=== PATIENT | female | born 1950 | race Caucasian/White ===

== ENCOUNTER → 2016-09-02 | Outpatient (CLI) | payer MEDICARE, OTHER ==
[2016-09-02 13:52] LABS: ALANINE AMINOTRANSFERASE 22 U/L (0-55); ALBUMIN 4.4 G/DL (3.2-4.5); ANION GAP 8 MMOL/L (5-14); ASPARTATE AMINO TRANSFERASE 17 U/L (5-34); BILIRUBIN,TOTAL 0.5 MG/DL (0.1-1.0); BLOOD UREA NITROGEN 16 MG/DL (7-18); BUN/CREATININE RATIO 21; CALCIUM 9.4 MG/DL (8.5-10.1); CARBON DIOXIDE 26 MMOL/L (21-32); CHLORIDE 106 MMOL/L (98-107); CREATININE SERUM 0.76 MG/DL (0.60-1.30); GFR ESTIMATED > 60; GLUCOSE 94 MG/DL (70-105); POTASSIUM 4.1 MMOL/L (3.6-5.0); SODIUM 140 MMOL/L (135-145); TOTAL PROTEIN 7.3 G/DL (6.4-8.2)
== END ==
LOC: LAB 10:23
PROVIDERS: ATTEND Family Medicine
DX: E03.9 Hypothyroidism, unspecified (principal)
CPT/HCPCS: 36415; 80053; 84443; 86038; 86039

== ENCOUNTER → 2016-09-05 | Outpatient (CLI) | payer MEDICARE, OTHER ==
[~2016-09-05] MED LIST: CATHETER FLUSH 10 ML SYR IV PRN; IOHEXOL 350 MG/ML 100 ML (OMNIPAQUE 350) VIAL IV ONE; NS 100 ML (IVPB) BAG IV ONE
--- OUTSIDE RECORDS SUMMARY | 2016-09-05 08:09 | XMS REPORT | Continuity of Care Document ---
Author Author [facility] Organization [facility] Address Unknown Phone Unavailable Allergies Medications Problems Date Dx Coded Attending Type Code Diagnosis Diagnosed By 06/08/2014 WILMER MONTGOMERY, SHEELA R Ot 727.51 06/08/2014 WILMER MONTGOMERY, SHEELA R Ot 822.0 06/08/2014 WILMER MONTGOMERY, SHEELA R Ot E000.8 06/08/2014 WILMER MONTGOMERY, SHEELA R Ot E888.9 02/27/2015 WILMER MONTGOMERY, SHEELA R Ot V76.12 04/23/2015 Ot V76.12 04/23/2015 Ot 246.9 04/23/2015 Ot V18.11 04/23/2015 Ot 241.0 04/23/2015 Ot 241.0 04/23/2015 Ot 174.9 04/23/2015 Ot V76.11 04/23/2015 WILMER MONTGOMERY, SHEELA R Ot V76.12 04/23/2015 WILMER MONTGOMERY, SHEELA R Ot 729.5 04/23/2015 WILMER MONTGOMERY, SHEELA R Ot 959.7 04/23/2015 WILMER MONTGOMERY, SHEELA R Ot E000.8 04/23/2015 SHEELA GUILLEN MD R Ot E849.8 04/23/2015 SHEELA GUILLEN MD R Ot E888.9 02/01/2016 SHEELA GUILLEN MD R Ot Z12.31 ENCNTR SCREEN MAMMOGRAM FOR MALIGNANT NE 02/02/2016 SHEELA GUILLEN MD R Ot Z12.31 ENCNTR SCREEN MAMMOGRAM FOR MALIGNANT NE 02/02/2016 SHEELA GUILLEN MD R Ot Z85.3 PERSONAL HISTORY OF MALIGNANT NEOPLASM O 03/07/2016 SHEELA GUILLEN MD R Ot Z12.31 ENCNTR SCREEN MAMMOGRAM FOR MALIGNANT NE 03/07/2016 SHEELA GUILLEN MD R Ot Z85.3 PERSONAL HISTORY OF MALIGNANT NEOPLASM O 09/02/2016 SHEELA GUILLEN MD Ot Z12.31 ENCNTR SCREEN MAMMOGRAM FOR MALIGNANT NE 09/02/2016 SHEELA GUILLEN MD Ot Z85.3 PERSONAL HISTORY OF MALIGNANT NEOPLASM O 09/03/2016 SHEELA GUILLEN MD Ot E03.9 HYPOTHYROIDISM, UNSPECIFIED 09/03/2016 SHEELA GUILLEN MD Ot Z12.31 ENCNTR SCREEN MAMMOGRAM FOR MALIGNANT NE 09/03/2016 SHEELA GUILLEN MD Ot Z85.3 PERSONAL HISTORY OF MALIGNANT NEOPLASM O 09/03/2016 SHEELA GUILLEN MD Ot E03.9 HYPOTHYROIDISM, UNSPECIFIED Procedures Results Test Result Range THYROID STIMULATING HORMONE - 09/02/16 11:25 THYROID STIMULATING HORMONE 1.66 u[iU]/mL 0.35-4.94 Comprehensive metabolic panel - 09/02/16 11:25 Serum or plasma sodium measurement (moles/volume) 140 mmol/ L 135-145 Serum or plasma potassium measurement (moles/volume) 4.1 mmol/L 3.6-5.0 Serum or plasma chloride measurement (moles/volume) 106 mmol /L 98-107 Carbon dioxide 26 mmol/L 21-32 Serum or plasma anion gap determination (moles/volume) 8 mmol/L 5-14 Serum or plasma urea nitrogen measurement (mass/volume) 16 mg/dL 7-18 Serum or plasma creatinine measurement (mass/volume) 0.76 mg /dL 0.60-1.30 Serum or plasma urea nitrogen/creatinine mass ratio 21 NRG Serum or plasma creatinine measurement with calculation of estimated glomerular filtration rate > NRG Serum or plasma glucose measurement (mass/volume) 94 mg/dL 70-105 Serum or plasma calcium measurement (mass/volume) 9.4 mg/dL 8.5-10.1 Serum or plasma total bilirubin measurement (mass/volume) 0.5 mg/dL 0.1-1.0 Serum or plasma alkaline phosphatase measurement (enzymatic activity/volume) 83 U/L 40-136 Serum or plasma aspartate aminotransferase measurement (enzymatic activity/ volume) 17 U/L 5-34 Serum or plasma alanine aminotransferase measurement (enzymatic activity/volume ) 22 U/L 0-55 Serum or plasma protein measurement (mass/volume) 7.3 g/dL 6.4-8.2 Serum or plasma albumin measurement (mass/volume) 4.4 g/dL 3.2-4.5 [id number] - 09/02/16 11:25 Screening antinuclear antibody (ULYSSES) assay by enzyme immunoassay Positive <1:80 Anaplasma phagocytophilum IgG ab [titer] in serum <1:80 Serum nuclear antibody pattern interpretation [facility] NRG Encounters ACCT No. Visit Date/Time Discharge Status Pt. Type Provider Facility Loc./Unit Complaint [id number] 01/24/2015 13:35:00 2014 23:59:59 CLS Outpatient SHEELA GUILLEN MD [facility] RAD [id number] 03/24/2014 14:41:00 2013 23:59:59 CLS Outpatient SHEELA GUILLEN MD [facility] RAD [id number] 03/23/2014 14:32:00 2013 23:59:59 CLS Outpatient SHEELA GULILEN MD [facility] RAD [id number] 01/12/2014 15:28:00 2013 23:59:59 CLS Outpatient SHEELA GUILLEN MD R [facility] RAD [id number] 10/20/2013 09:45:00 2013 23:59:59 CLS Outpatient SHEELA GUILLEN MD [facility] RAD [id number] 09/05/2016 08:15:00 PEN Preadmit SHEELA GUILLEN MD [facility] RAD ACQUIRED HYPOTHYROIDISM [id number] 09/02/2016 10:23:00 ACT Outpatient SHEELA GUILLEN MD [facility] LAB ACQUIRED HYPOTHYROIDISM [id number] 01/31/2016 11:08:00 ACT Outpatient SHEELA GUILLEN MD [facility] RAD SCREENING [id number] 12/12/2011 13:35:00 Document Registration [id number] 10/10/2010 14:12:00 Document Registration [id number] 03/30/2010 10:00:00 Document Registration [id number] 12/19/2009 10:29:00 Document Registration [id number] 12/12/2009 09:08:00 Document Registration
--- NOTE | 2016-09-05 10:19 | Diagnostic Imaging Report ---
CLINICAL INDICATION: Patient with left side of neck in front of the ear lobe, which is swollen and has pain for one month. Patient has history of breast cancer. EXAM: Axial CT scan of the neck soft tissue performed with 75 cc of Omnipaque 350 IV contrast. COMPARISON: None. FINDINGS: There is a 4 mm x 5 mm lymph node which is seen adjacent to the anterior inferior aspect of the left ear. There is no adjacent fat stranding or other significant abnormality seen in the region. There is no significant lymphadenopathy. The largest lymph node measures 8 mm x 12 mm in the left level 2a region. There is slight fatty replacement nodularity of the submandibular gland with no measurable mass or stone seen. The bilateral parotid glands show no significant abnormality. The thyroid gland is homogenous and unremarkable. There is no neck soft tissue fluid collection or enhancing mass. The nasopharynx, oropharynx, hypopharynx, and laryngeal structures are unremarkable. Lungs are unremarkable. The neck vessels are structures are unremarkable as visualized. There are cervical spine degenerative spurs and facet arthropathy. Visualized intracranial structures are unremarkable. IMPRESSION: 1: There is a 4 mm x 5 mm benign appearing lymph node seen adjacent to the anterior for aspect of the left ear. There is no other significant abnormality seen in this region. The remainder of this neck CT scan exam is unremarkable for patient's age. Dictated by: Dictated on workstation # [id number]
== END ==
LOC: RAD 08:06
PROVIDERS: ATTEND Family Medicine
DX: E03.9 Hypothyroidism, unspecified (principal)
CPT/HCPCS: 70491

== ENCOUNTER → 2016-09-12 | Outpatient (CLI) | payer MEDICARE, OTHER ==
--- OUTSIDE RECORDS SUMMARY | 2016-09-12 07:45 | XMS REPORT | Continuity of Care Document ---
Author Author [facility] Organization [facility] Address Unknown Phone Unavailable Allergies Active Description Code Type Severity Reaction Onset Reported/Identified Relationship to Patient Clinical Status Yes No Allergy Information Available [id number] Drug Allergy Unknown N/A 09/05/2016 Medications Problems Date Dx Coded Attending Type [...] WILMER MONTGOMERY, SHEELA R Ot E000.8 04/23/2015 WILMER MONTGOMERY, SHEELA R Ot E849.8 04/23/2015 WILMER MONTGOMERY, SHEELA R Ot E888.9 02/01/2016 WILMER MONTGOMERY, SHEELA R Ot Z12.31 ENCNTR SCREEN MAMMOGRAM FOR MALIGNANT NE 02/02/2016 WILMER MONTGOMERY, SHEELA R Ot Z12.31 ENCNTR SCREEN MAMMOGRAM FOR MALIGNANT NE 02/02/2016 WILMER MONTGOMERY, SHEELA R Ot Z85.3 PERSONAL HISTORY OF MALIGNANT NEOPLASM O 03/07/2016 WILMER MONTGOMERY, SHEELA R Ot Z12.31 ENCNTR SCREEN MAMMOGRAM FOR MALIGNANT NE 03/07/2016 SHEELA GUILLEN MD R Ot Z85.3 PERSONAL HISTORY OF MALIGNANT NEOPLASM O 09/02/2016 SHEELA GUILLEN MD R Ot Z12.31 ENCNTR SCREEN MAMMOGRAM FOR MALIGNANT NE 09/02/2016 SHEELA GUILLEN MD R Ot Z85.3 PERSONAL HISTORY OF MALIGNANT NEOPLASM O 09/03/2016 SHEELA GUILLEN MD R Ot E03.9 HYPOTHYROIDISM, UNSPECIFIED 09/03/2016 SHEELA GUILLEN MD R Ot Z12.31 ENCNTR SCREEN MAMMOGRAM FOR MALIGNANT NE 09/03/2016 SHEELA GUILLEN MD R Ot Z85.3 PERSONAL HISTORY OF MALIGNANT NEOPLASM O 09/03/2016 SHEELA GULILEN MD R Ot E03.9 HYPOTHYROIDISM, UNSPECIFIED 09/06/2016 SHEELA GUILLEN MD R Ot E03.9 HYPOTHYROIDISM, UNSPECIFIED Procedures Results Test [...] plasma albumin measurement (mass/volume) 4.4 g/dL 3.2-4.5 [id number] - 09/02/16 11:25 Screening antinuclear antibody (ULYSSES) assay by enzyme immunoassay Positive <1:80 Anaplasma phagocytophilum IgG ab [titer] in serum <1:80 Serum nuclear antibody pattern interpretation [facility] NRG Encounters ACCT No. Visit Date/Time Discharge Status Pt. Type Provider Facility Loc./Unit Complaint [id number] 01/24/2015 13:35:00 2014 23:59:59 CLS Outpatient SHEELA GUILLEN MD [facility] RAD [id number] 03/24/2014 14:41:00 2013 23:59:59 CLS Outpatient SHEELA GUILLEN MD [facility] RAD [id number] 03/23/2014 14:32:00 2013 23:59:59 CLS Outpatient SHEELA GUILLEN MD [facility] RAD [id number] 01/12/2014 15:28:00 2013 23:59:59 CLS Outpatient SHEELA GUILLEN MD [facility] RAD [id number] 10/20/2013 09:45:00 2013 23:59:59 CLS Outpatient SHEELA GUILLEN MD [facility] RAD [id number] 09/05/2016 08:06:00 ACT Outpatient SHEELA GUILLEN MD [facility] RAD ACQUIRED HYPOTHYROIDISM [id number] 09/02/2016 10:23:00 ACT Outpatient SHEELA GUILLEN MD [facility] LAB ACQUIRED HYPOTHYROIDISM [id number] 01/31/2016 11:08:00 ACT Outpatient SHEELA GUILLEN MD [facility] RAD SCREENING [id number] 12/12/2011 13:35:00 Document Registration [id number] 10/10/2010 14:12:00 Document Registration [id number] 03/30/2010 10:00:00 Document Registration [id number] 12/19/2009 10:29:00 Document Registration [id number] 12/12/2009 09:08:00 Document Registration
--- NOTE | 2016-09-12 12:48 | Diagnostic Imaging Report ---
PROCEDURE: MR imaging cervical spine without contrast. TECHNIQUE: Multiplanar, multisequence MR imaging of the cervical spine was performed without contrast. INDICATION: Neck pain. Patient has history of breast cancer. FINDINGS: There is straightening of the cervical spine curvature. The alignment at the posterior spinal line is satisfactory. The vertebral body heights are preserved. There is disc desiccation at all levels and moderate disc height loss at C5-C6. There is mild disc height loss at the C4-C5 and C6-C7 levels. There are mild reactive marrow changes around the endplates of the mid cervical spine levels compatible with Modic type I reactive edema changes. There is thickening of the posterior longitudinal ligament from C4-C5 to C6-C7 disc levels. The spinal cord has a normal signal. The foramen magnum and upper cervical canal are widely patent. C2-C3: There is no disc herniation, and no spinal canal or foraminal stenosis. C3-C4: There is a minimal disc spur complex with no spinal canal stenosis. No foraminal narrowing. C4-C5: There is a prominent disc spur complex associated with pyqp-de-uaavfhgv central canal stenosis reducing the AP dimension of the spinal canal to 8 mm. It is associated with mild compression of the spinal cord deforming its anterior contour. There is uncovertebral and facet joint hypertrophy resulting in hlhb-be-frqwhdft foraminal stenosis on the right and no significant foraminal stenosis on the left. C5-C6: There is a disc spur complex and posterior ligamentous hypertrophy resulting in moderate spinal canal stenosis reducing the AP dimension of the spinal canal to 6.7 mm. There is minimal impression upon the anterior margin of the spinal cord. No cord signal abnormality. The foramina demonstrate bilateral severe stenosis. C6-C7: There is a spur disc complex associated with mild spinal canal stenosis reducing the AP dimension of the canal to 8.5 mm with no significant cord compression. The foramina demonstrate ljqc-ye-rlbfkpiz narrowing on the left side only. C7-T1: No spinal canal or foraminal stenosis. No disc herniation. IMPRESSION: Degenerative disc, facet and uncovertebral joint changes and thickening of the posterior longitudinal ligament associated with spinal canal and foraminal stenosis involving the C4-C5, C5-C6 and C6-C7 levels as described. Dictated by: Dictated on workstation # [id number]
== END ==
LOC: RAD 07:42
PROVIDERS: ATTEND Family Medicine
DX: M54.2 Cervicalgia (principal); G56.92 Unspecified mononeuropathy of left upper limb
CPT/HCPCS: 72141

== ENCOUNTER → 2016-12-20 | Outpatient (CLI) | payer MEDICARE, OTHER ==
--- NOTE | 2016-12-20 13:28 | Diagnostic Imaging Report ---
PROCEDURE: MRI left upper extremity without contrast. TECHNIQUE: Multiplanar, multisequence non contrast-enhanced MRI of the left upper extremity was accomplished. INDICATION: Left shoulder pain, limited range of motion. FINDINGS: There are no previous left shoulder studies available for comparison. The MRI cervical spine exam of 09/12/2016 did note degenerative disc, ligamentous, and bony disease at C4-C5, C5-C6, and C6-C7. The T2 fat-saturated coronal series of this study shows that there is near-complete obliteration of the glenohumeral space. The labrum has also been severely torn and has degenerated. There are also numerous sublabral cysts within the glenoid consistent with a long-standing tear and degeneration of the labrum. Furthermore, there is a suggestion of a sizable bony excrescence along the inferior margin of the humeral head. This measures 1.0 x 2.5 x 3.8 cm in maximum transverse, longitudinal, and AP dimensions. I suspect that this is a sequela of prior trauma and/or degenerative disease; however, I would recommend that a three-view plain film examination of the left shoulder be performed for further study of this finding. There is no abnormal signal arising from the osseous structures to suggest bone edema or fracture. There is hypertrophy of the acromioclavicular joint and there is a trace amount of fluid within the joint. This fluid may be secondary to mild synovitis. There is also a small amount of fluid in the subacromial bursa and this suggests that there is an element of mild tendinitis present as well; however, the hypertrophy of the acromioclavicular joint does not result in any significant narrowing of the outlet for the supraspinatus muscle. On the T2 fat-saturated series, there is a minute area of increased signal along the anterior most insertion of the attachment of the rotator cuff. This may represent a very small rim-rent tear. For the most part, the rotator cuff appears to be intact. The supraspinatus muscle is not retracted or bunched. The biceps tendon and the subscapularis tendon are intact. There is no sign of a joint effusion. IMPRESSION: 1. There is no evidence for an acute bony abnormality. 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 The labrum has been torn and has degenerated. There also appears to be a sizable bony excrescence along the inferior margin of the humeral head. Recommendations as above. 2. There is a minute tear of the anterior insertion of the rotator cuff. The supraspinatus muscle however is not retracted or bunched. 3. There is mild hypertrophy of the acromioclavicular joint, but there is no narrowing of the outlet for the supraspinatus muscle. The trace amount of fluid in the acromioclavicular joint may be secondary to mild synovitis. Dictated by: Dictated on workstation # [id number]
== END ==
LOC: RAD 11:32
PROVIDERS: ATTEND Family Medicine
DX: M19.012 Primary osteoarthritis, left shoulder (principal); G89.29 Other chronic pain
CPT/HCPCS: 73221

== ENCOUNTER 2017-02-21 10:00 | Outpatient (RCR) | payer MEDICARE, OTHER | END 2017-03-04 | disposition home or self-care (01) | PROVIDERS: ATTEND Physician Assistant | DX: M48.02 Spinal stenosis, cervical region (principal) ==

== ENCOUNTER → 2017-03-18 | Outpatient (CLI) | payer MEDICARE, OTHER ==
--- NOTE | 2017-03-18 17:13 | Diagnostic Imaging Report ---
FOOT, RIGHT, 3 VIEW COMPARISON: None available. INDICATION: Anterior foot pain and swelling. No trauma. TECHNIQUE: Non-weight bearing AP, oblique, and lateral views of the foot. FINDINGS: Normal osseous mineralization. No osseous erosions or periosteal reaction. Mild degenerative joint space narrowing of the great toe MTP joint. Other joint spaces are maintained. A type 3 os navicularis is present. Large plantar calcaneal spur. No discrete soft tissue abnormality by radiography. IMPRESSION: 1. No radiographic abnormality to explain patient's foot pain and swelling. Dictated by: Dictated on workstation # [id number]
== END ==
LOC: RAD 16:36
PROVIDERS: ATTEND Family Medicine
DX: M79.671 Pain in right foot (principal)
CPT/HCPCS: 73630

== ENCOUNTER 2017-05-04 23:51 | Day surgery (SDC) | payer MEDICARE, OTHER ==
[~2017-05-04] VITALS: Ht 167.6 cm; Wt 93.9 kg
[2017-05-05] VITALS (19 sets, daily range): BP systolic 99–147; BP diastolic 52–90
[2017-05-05] MEDS ORDERED: GABA-488 (00:13)
[2017-05-05] MEDS ORDERED: LEVO50TA6 PO (00:13)
[2017-05-05] MEDS ORDERED: PARO10TA3 PO (00:13)
[2017-05-05] MEDS ORDERED: ASPIRIN 81 MG CHEW (CHILDREN'S ASA) PO ONE (00:15)
[2017-05-05 00:16] LABS: BASOPHILS % (AUTO) 0 % (0-10); EOSINOPHILS # (AUTO) 0.2 10^3/uL (0.0-0.3); EOSINOPHILS % (AUTO) 2 % (0-10); LYMPHOCYTES # (AUTO) 5.5 X 10^3 (1.0-4.0); LYMPHOCYTES % (AUTO) 54 % (12-44); MEAN CORPUSCULAR HEMOGLOBIN 29 PG (25-34); MEAN CORPUSCULAR HGB CONC 34 G/DL (32-36); MEAN CORPUSCULAR VOLUME 85 FL (80-99); MEAN PLATELET VOLUME 10.9 FL (7.4-10.4); MONOCYTES # (AUTO) 0.8 X 10^3 (0.0-1.0); MONOCYTES % (AUTO) 8 % (0-12); NEUTROPHILS # (AUTO) 3.7 X 10^3 (1.8-7.8); NEUTROPHILS % (AUTO) 36 % (42-75); PLATELET COUNT 295 10^3/uL (130-400); RED BLOOD COUNT 5.12 10^6/uL (4.35-5.85); RED CELL DISTRIBUTION WIDTH 13.8 % (10.0-14.5); WHITE BLOOD COUNT 10.1 10^3/uL (4.3-11.0)
[2017-05-05 00:25] LABS: INR 0.9 (0.8-1.4)
--- NOTE | 2017-05-05 00:33 | ED Cardiac General ---
History of Present Illness General Chief Complaint: Cardiac/General Problems Stated Complaint: DIZZY Nursing Triage Note: PALPATATIONS, DIZZINESS, LOW HEARTRATE Source: patient Exam Limitations: no limitations History of Present Illness Time seen by provider: 00:02 Initial Comments Here with report of feeling a fluttering in her chest, left ear pain, diaphoresis, nausea and occasional diarrhea that has been intermittent over the last 24 hours. Notes that she's had some irregular heartbeat for a long time but it has never been like this. She had been checking her blood pressure and pulse today and noted that there was a wide range of both including pulse in the range of 40s to 110s. She was unsure of why she was having diaphoresis. Overall this all concerned her so she presented for further evaluation. Timing/Duration: changing over time, 1 day Severity: moderate Location: central (fluttering), other (left ear neck pain) Activities at Onset: none Prior CP/Workup: no prior chest pain, no prior cardiac workup NTG SL CHIEF CREATIVE OFFICER: No ASA po CHIEF CREATIVE OFFICER: No Associated Systoms: Diaphoresis, No Fever/Chills, Nausea/Vomiting, No Shortness of Air, No Weakness Allergies and Home Medications Allergies Coded Allergies: Penicillins (Verified Allergy, Unknown, 05/05/17) Home Medications Gabapentin 300 Mg Capsule, (Reported) Levothyroxine Sodium 50 Mcg Tablet, (Reported) Paroxetine HCl 10 Mg Tablet, (Reported) Review of Systems Constitutional: see HPI, No chills, diaphoresis, No fever EENTM: No Symptoms Reported Respiratory: No Symptoms Reported Cardiovascular: See HPI, Chest Pain, Denies Edema, Irregular Heart Rate, Lightheadedness, Palpitations Gastrointestinal: Diarrhea, Nausea, Denies Vomiting Genitourinary: No Symptoms Reported Musculoskeletal: see HPI, muscle pain, neck pain Skin: no symptoms reported Psychiatric/Neurological: No Symptoms Reported All Other Systems Reviewed Negative Unless Noted: Yes Past Qbitmoi-Nxljyp-Xdzzap Hx Patient Social History Alcohol Use: Denies Use Recreational Drug Use: No Smoking Status: Never a Smoker 2nd Hand Smoke Exposure: No Recent Foreign Travel: No Contact w/Someone Who Travel: No Recent Infectious Disease Expo: No Recent Hopitalizations: No Immunizations Up To Date Tetanus Booster (TDap): Unknown Seasonal Allergies Seasonal Allergies: No Surgeries History of Surgeries: Yes Surgeries: Breast, Gallbladder, Hysterectomy Respiratory History of Respiratory Disorde: No Cardiovascular History of Cardiac Disorders: No Neurological History of Neurological Disord: No Reproductive System : No CARPET INSTALLATION SPECIALIST History: Hysterectomy, Menopausal Genitourinary History of Genitourinary Disor: No Gastrointestinal History of Gastrointestinal Di: No Musculoskeletal History of Musculoskeletal Dis: No Endocrine History of Endocrine Disorders: Yes Endocrine Disorders: Hypothyroidsim HEENT History of HEENT Disorders: No Cancer History of Cancer: Yes Cancer: Breast Type of Tx Receive: Surgical Intervention Psychosocial History of Psychiatric Problem: Yes Behavioral Health Disorders: Anxiety Integumentary History of Skin or Integumenta: No Blood Transfusions History of Blood Disorders: No Adverse Reaction to a Blood Tr: No Reviewed Nursing Assessment Reviewed/Agree w Nursing PMH: Yes Family Medical History Significant Family History: Heart Disease, CAD Under 55 Years Old, CAD Over 55 Years Old, Hypertension Physical Exam Vital Signs Vital Sign - Last 12Hours Capillary Refill : Less Than 3 Seconds General Appearance: No Apparent Distress, WD/WN HEENT: PERRL/EOMI, Pharynx Normal Neck: Non Tender, Supple Respiratory: Lungs Clear, Normal Breath Sounds Cardiovascular: No Murmur, Irregularly Irregular, Tachycardia Gastrointestinal: Non Tender, Soft Extremity: Normal Inspection, Normal Range of Motion, Non Tender Neurologic/Psychiatric: Alert, Oriented x3 Skin: Normal Color, Warm/Dry Progress/Results/Core Measures Results/Orders Lab Results Laboratory Tests Test 05/05/17 00:08 Range/Units White Blood Count 10.1 4.3-11.0 10^3/uL Red Blood Count 5.12 4.35-5.85 10^6/uL Hemoglobin 14.9 11.5-16.0 G/DL Hematocrit 44 35-52 % Mean Corpuscular Volume 85 80-99 FL Mean Corpuscular Hemoglobin 29 25-34 PG Mean Corpuscular Hemoglobin Concent 34 32-36 G/DL Red Cell Distribution Width 13.8 10.0-14.5 % Platelet Count 295 130-400 10^3/uL Mean Platelet Volume 10.9 H 7.4-10.4 FL Neutrophils (%) (Auto) 36 L 42-75 % Lymphocytes (%) (Auto) 54 H 12-44 % Monocytes (%) (Auto) 8 0-12 % Eosinophils (%) (Auto) 2 0-10 % Basophils (%) (Auto) 0 0-10 % Neutrophils # (Auto) 3.7 1.8-7.8 X 10^3 Lymphocytes # (Auto) 5.5 H 1.0-4.0 X 10^3 Monocytes # (Auto) 0.8 0.0-1.0 X 10^3 Eosinophils # (Auto) 0.2 0.0-0.3 10^3/uL Basophils # (Auto) 0.0 0.0-0.1 10^3/uL Prothrombin Time 12.0 L 12.2-14.7 SEC INR Comment 0.9 0.8-1.4 Activated Partial Thromboplast Time 26 24-35 SEC D-Dimer 0.31 0.00-0.49 UG/ML Sodium Level 143 135-145 MMOL/L Potassium Level 3.7 3.6-5.0 MMOL/L Chloride Level 107 98-107 MMOL/L Carbon Dioxide Level 25 21-32 MMOL/L Anion Gap 11 5-14 MMOL/L Blood Urea Nitrogen 19 H 7-18 MG/DL Creatinine 1.02 0.60-1.30 MG/DL Estimat Glomerular Filtration Rate 54 BUN/Creatinine Ratio 19 Glucose Level 118 H 70-105 MG/DL Calcium Level 9.9 8.5-10.1 MG/DL Magnesium Level 2.3 1.8-2.4 MG/DL Total Bilirubin 0.3 0.1-1.0 MG/DL Aspartate Amino Transf (AST/SGOT) 13 5-34 U/L Alanine Aminotransferase (ALT/SGPT) 17 0-55 U/L Alkaline Phosphatase 82 40-136 U/L Myoglobin 33.5 10.0-92.0 NG/ML Troponin I < 0.30 <0.30 NG/ML Total Protein 7.9 6.4-8.2 GM/DL Albumin 4.4 3.2-4.5 GM/DL Lipase 21 8-78 U/L My Orders Orders - LATRICE DUGAN MD Cbc With Automated Diff (05/05/17 00:07) Magnesium (05/05/17 00:07) Chest 1 View, Ap/Pa Only (05/05/17 00:07) Ekg Tracing (05/05/17 00:07) Cardiac Profile 1 (05/05/17 00:07) Comprehensive Metabolic Panel (05/05/17 00:07) Myoglobin Serum (05/05/17 00:07) Protime With Inr (05/05/17 00:07) Partial Thromboplastin Time (05/05/17 00:07) O2 (05/05/17 00:07) Monitor-Rhythm Ecg Trace Only (05/05/17 00:07) Lipid Panel (05/06/17 06:00) Aspirin Chewable Tablet (Baby Aspirin Ch (05/05/17 00:15) Saline Lock/Iv-Start (05/05/17 00:07) Lipase (05/05/17 00:07) Fibrin Degradation Products (05/05/17 00:07) Thyroid Stimulating Hormone (05/05/17 01:09) Medications Given in ED Current Medications Medications Dose Ordered Sig/Valerio Route Start Time Stop Time Status Last Admin Dose Admin Aspirin 324 mg ONCE ONCE PO 05/05/17 00:15 05/05/17 00:16 DC 05/05/17 00:28 324 MG Vital Signs/I&O Vital Sign - Last 12Hours 05/05/17 05/05/17 00:13 00:13 Temp 98.7 Pulse 116 Resp 18 B/P (MAP) 191/91 Pulse Ox 94 96 O2 Delivery Room Air Nasal Cannula Blood Pressure Mean: 124 Progress Note : Progress Note Seen and evaluated. IV, labs, EKG and chest x-ray ordered. ASA 324 mg by mouth ordered. Monitor patient. Patient has a variety of rhythms on the monitor including normal sinus, tachycardia, bigeminy, multifocal PVCs. Monitor patient. 0105: Patient still has a variety of rhythms on the monitor including ventricular bigeminy, sinus rhythm and then do note multifocal PVCs. States she feels a little better. Patient has significant cardiac history and never has had cardiac workup. There is early cardiac in her close family including her father. Due to presentation including diaphoresis with the variety of heart rates, admission is indicated. This was discussed with the patient and family who agree. I did discuss the case with Dr. Manzo at 0105 and she accepts patient for admission, observation status. Requesting cardiology evaluation and consult in the morning. This was ordered. Admit, observation status. Patient reported that she has had problems with her thyroid recently. Thyroid study added for review by admitting physician. ECG Initial ECG Impression Date: May 05, 2017 Initial ECG Impression Time: 00:08 Initial ECG Rate: 110 Initial ECG Rhythm: S.Tach Initial ECG Comparisson: Changed Comment Ventricular bigeminy with sinus tachycardia. Multifocal PVCs noted. No evidence of ST elevation TN. changed from previous of 22 June 2007. Interpreted by me. Diagnostic Imaging Diagonstic Imaging: Xray Plain Films/CT/US/NM/MRI: chest Comments Mildly enlarged cardiac silhouette. Otherwise no acute findings. Departure Communication (Admissions) Time/Spoke to Admitting Phy: 01:05 Impression Impression: Primary Impression: Chest pain Qualified Codes: R07.9 - Chest pain, unspecified Additional Impressions: Palpitations Multifocal PVCs Disposition: ADMITTED INPATIENT Condition: Stable Admissions Decision to Admit Reason: Admit from ER (General) Decision to Admit/Date: May 05, 2017 Time/Decision to Admit Time: 01:05 Departure-Patient Inst. Referrals: SHEELA GUILLEN MD (PCP/Family) Primary Care Physician LATRICE DUGAN MD May 05, 2017 00:33
[2017-05-05 00:37] LABS: ALANINE AMINOTRANSFERASE 17 U/L (0-55); ALBUMIN 4.4 GM/DL (3.2-4.5); ANION GAP 11 MMOL/L (5-14); ASPARTATE AMINO TRANSFERASE 13 U/L (5-34); BILIRUBIN,TOTAL 0.3 MG/DL (0.1-1.0); BLOOD UREA NITROGEN 19 MG/DL (7-18); BUN/CREATININE RATIO 19; CALCIUM 9.9 MG/DL (8.5-10.1); CARBON DIOXIDE 25 MMOL/L (21-32); CHLORIDE 107 MMOL/L (98-107); CREATININE SERUM 1.02 MG/DL (0.60-1.30); GFR ESTIMATED 54; GLUCOSE 118 MG/DL (70-105); LIPASE 21 U/L (8-78); MAGNESIUM 2.3 MG/DL (1.8-2.4); POTASSIUM 3.7 MMOL/L (3.6-5.0); SODIUM 143 MMOL/L (135-145); TOTAL PROTEIN 7.9 GM/DL (6.4-8.2)
[2017-05-05 00:43] LABS: MYOGLOBIN SERUM 33.5 NG/ML (10.0-92.0)
[2017-05-05] MEDS ORDERED: NITROGLYCERIN 0.4 MG SL TABS BTL 25'S SL PRN (03:15)
[2017-05-05] MEDS ORDERED: morphine INJ 4 MG/ML 1 ML (VIAL/SYRINGE) IV PRN (03:15)
[2017-05-05] MEDS ORDERED: ONDANSETRON 4 MG/2 ML (SDV) Z0FRAN IV PRN (03:15)
[2017-05-05] MEDS: NS IV 1000 ML 1,000 ML IV SCH ×2 (03:22→11:10)
[2017-05-05 06:42] LABS: CHOLESTEROL 203 MG/DL (< 200); CREATINE KINASE 31 U/L (29-168); DIRECT LDL 143 MG/DL (1-129); TRIGLYCERIDES 165 MG/DL (<150); VLDL CHOLESTEROL 33 MG/DL (5-40)
[2017-05-05 06:52] LABS: MYOGLOBIN SERUM 29.5 NG/ML (10.0-92.0); TROPONIN I < 0.30 NG/ML (<0.30)
--- NOTE | 2017-05-05 07:26 | Diagnostic Imaging Report ---
INDICATION: Heart palpitations and dizziness. Comparison made with prior examination from 06/22/07. FINDINGS: The heart size is normal. There is mild venous congestion. There is no pleural effusion or pneumothorax. The mediastinum is unremarkable. IMPRESSION: Mild central pulmonary venous congestion. Dictated by: Dictated on workstation # [id number]
[2017-05-05] MEDS: ASPIRIN E.C. 325 MG (ECOTRIN) TABLET PO SCH ×3 (08:30→11:25)
--- NOTE | 2017-05-05 08:41 | Consultation-Cardiology ---
HPI-Cardiology Cardiology Consultation Date of Consultation 05/05/17 Date of Admission Time Seen by Provider: 08:34 Indication: Chest pain, palpitations HPI Patient is a 67 y/o female with unremarkable PMH. Has history of hypothyroidism. Presented to the ER last night after began having episode of palpitations while doing light housework. Associated chest pain/pressure, dyspnea and diaphoresis, near syncope. EKG in the ER revealed sinus tachycardia with bigeminy. Reports she has been having episodes of palpitations occurring approx once per week for the past year. Denies any active chest pain at this time. 67 years old lady with history of hypothyroidism and anxiety, started having recurrent episodes of palpitation with mild pressure on the left side of her chest lasted the whole day yesterday, came into the emergency room, reporting some improvement after arriving to the floor, currently feeling better, no further episodes were noted, noted to have ventricular bigeminy. Reported mild lightheadedness. Home Medications & Allergies Allergies: Coded Allergies: Penicillins (Verified Allergy, Unknown, 05/05/17) latex (Verified Allergy, Unknown, HIVES, 05/05/17) Home Medication List Reviewed: Yes DVU-Uslobw-Iyjkzn Hx Patient Social History Marital Status: Alcohol Use: Denies Use Recreational Drug Use: No Smoking Status: Never a Smoker 2nd Hand Smoke Exposure: No Recent Foreign Travel: No Recent Infectious Disease Expo: No Recent Hopitalizations: No Physical Abuse Screen: No Sexual Abuse: No Immunizations Up To Date Tetanus Booster (TDap): Unknown Past Medical History hypothyroidism Family Medical History Significant Family History: Heart Disease, CAD Under 55 Years Old, CAD Over 55 Years Old, Hypertension Family History: Asthma 19 FATHER Cardiovascular disease 19 FATHER 19 MOTHER G8 BROTHER (aortic dysfunction) Congenital heart disease 19 MOTHER Hypertension 19 FATHER 19 MOTHER Kidney disease G8 SISTER (kidney cancer ) Myocardial infarction 19 FATHER 19 MOTHER Thyroid disease 19 MOTHER (thyroid cancer) Constitutional: diaphoresis, dizziness, No fever, No malaise EENTM: No blurred vision, No double vision, No vision loss Respiratory: No cough, No dyspnea on exertion Cardiovascular: chest pain, No edema, No Hx of Intervention, palpitations, No syncope, No vascular heart diseas Gastrointestinal: No abdominal pain, No constipation Genitourinary: No dysuria, No frequency Musculoskeletal: No back pain Skin: No lesions, No rash Psychiatric/Neurological: Denies Anxiety, Denies Depressed Reviewed Test Results Reviewed Test Results Lab Laboratory Tests 05/05/17 00:08: White Blood Count 10.1, Red Blood Count 5.12, Hemoglobin 14.9, Hematocrit 44, Mean Corpuscular Volume 85, Mean Corpuscular Hemoglobin 29, Mean Corpuscular Hemoglobin Concent 34, Red Cell Distribution Width 13.8, Platelet Count 295, Mean Platelet Volume 10.9H, Neutrophils (%) (Auto) 36L, Lymphocytes (%) (Auto) 54H, Monocytes (%) (Auto) 8, Eosinophils (%) (Auto) 2, Basophils (%) (Auto) 0, Neutrophils # (Auto) 3.7, Lymphocytes # (Auto) 5.5H, Monocytes # (Auto) 0.8, Eosinophils # (Auto) 0.2, Basophils # (Auto) 0.0, Prothrombin Time 12.0L, INR Comment 0.9, Activated Partial Thromboplast Time 26, D-Dimer 0.31, Sodium Level 143, Potassium Level 3.7, Chloride Level 107, Carbon Dioxide Level 25, Anion Gap 11, Blood Urea Nitrogen 19H, Creatinine 1.02, Estimat Glomerular Filtration Rate 54, BUN/Creatinine Ratio 19, Glucose Level 118H, Calcium Level 9.9, Magnesium Level 2.3, Total Bilirubin 0.3, Aspartate Amino Transf (AST/SGOT) 13, Alanine Aminotransferase (ALT/SGPT) 17, Alkaline Phosphatase 82, Myoglobin 33.5 , Troponin I < 0.30, Total Protein 7.9, Albumin 4.4, Lipase 21, Thyroid Stimulating Hormone (TSH) 3.71 05/05/17 06:11: Myoglobin 29.5, Troponin I < 0.30, Total Creatine Kinase 31, Triglycerides Level 165H, Cholesterol Level 203H, LDL Cholesterol Direct 143H, VLDL Cholesterol 33, HDL Cholesterol 35L ECG Impression ECG Initial ECG Rhythm: S.Tach, PVC Physical Exam Vital Signs Vital Sign - Last 12Hours Capillary Refill : Less Than 3 Seconds General Appearance: No Apparent Distress, WD/WN HEENT: PERRL/EOMI, TMs Normal, Normal ENT Inspection Neck: Non Tender, Supple Respiratory: Chest Non Tender, Lungs Clear Cardiovascular: Regular Rate, Rhythm, No Edema, No JVD, No Murmur Gastrointestinal: No Pulsatile Mass, Non Tender, Soft Rectal: Deferred Back: No CVA Tenderness Extremity: Non Tender, No Calf Tenderness, No Pedal Edema Neurologic/Psychiatric: Alert, Oriented x3, family preservation caseworker II-XII Norm as Tested Skin: Normal Color, Warm/Dry Lymphatic: No Adenopathy A/P-Cardiology Admission Diagnosis (1) Chest pain Qualifiers: Qualified Codes: R07.89 - Other chest pain Status: Acute (2) Palpitations Status: Acute Assessment & Plan: likely secondary to PVC's. Will continue to monitor telemetry. (3) Multifocal PVCs Status: Acute Assessment & Plan: continue to monitor. Will start patient on low dose beta celestino and monitor her tolerance and response. Discussed limiting caffeine. (4) Hyperlipidemia Qualifiers: Qualified Codes: E78.2 - Mixed hyperlipidemia Status: Chronic Assessment & Plan: continue to monitor. Consider starting on statin prior to discharge. (5) Family history of coronary arteriosclerosis (6) Hypothyroidism Qualifiers: Qualified Codes: E03.9 - Hypothyroidism, unspecified Status: Chronic Permanent Comment: management per primary care. TSH WNL Last Edited By: Diamante Shirley on May 05, 2017 08:55 Assessment/Plan Chest pain, nonspecific etiology- EKG revealed SR with PVC's. No acute ST changes. Cardiac enzymes negative. Has multiple risk factors for underlying CAD. Further evaluation with stress test, 2D Echo. Palpitations/PVC's- continue on telemetry and continue to monitor. Patient drink approx 4-5 cups caffeine daily. Discussed limiting caffeine. Will start low dose beta celestino and monitor her tolerance and response. Hyperlipidemia- elevated LDL. Consider starting statin prior to discharge. Hypothyroidism- managed by PCP, TSH WNL. Family hx of CAD Thank you for allowing us to participate in the management of Mrs. Naranjo. This is Diamante Shirley PA-C as a scribe for Dr. Rubalcava. This is Dr. Rubalcava, I have seen and evaluated the patient with Diamante, perform physical examination, she is feeling better at this time, she had chest pain with palpitation with ventricular bigeminy, discussed limiting caffeine intake, I will evaluate echocardiogram and stress test. I interviewed the patient and perform physical examination, did few modification to the note and used Italic Font Clinical Quality Measures AMI/AHF: ASA po Prior to arrival: No DVT/VTE Risk/Contraindication: Risk Factor Score Per Nursin RFS Level Per Nursing on Admit: 3=High DIAMANTE SAUNDERS May 05, 2017 08:41 BERNABE RUBALCAVA MD May 05, 2017 09:55
[2017-05-05] MEDS ORDERED: NS IV 1000 ML 1,000 ML ONE (10:37)
[2017-05-05] MEDS ORDERED: MIDAZOLAM 5 MG/5 ML (VERSED) VIAL ONE (10:37)
[2017-05-05] MEDS ORDERED: fentaNYL INJECTION 100 MCG/2 ML AMP ONE (10:37)
[2017-05-05] MEDS ORDERED: HEParin (CATH LAB) 2,000 ML IV ONE (10:38)
--- NOTE | 2017-05-05 10:53 | History & Physical-Hospitalist ---
HPI History of Present Illness: HPI/Chief Complaint Pt is a 67yoCF with a PMH of breast cancer s/p masectomy and hypothyroidism who presented due to a constellation of symptoms yesterday. She reports for over a year about once per week she has had lightheadedness and palpations. Yesterday she was doing housework and become very lightheaded to the point of nearly passing out and felt her heart was racing and skipping beats. She also had chest pain. She also became very diaphoretic. She elected to come to the ER for evaluation. She denies any history of HTN, heart disease, tobacco use, or DM. She endorses a history of significant family history for cardiac disease (two grandparents dying in the 30s-40s due to heart disease). She has no known diagnosis of sleep apnea but does report snoring. Source: patient Date Seen 05/05/17 Time Seen by Provider: 09:00 Attending Physician Mook Manzo MD PCP Shad Medina MD Referring Physician Date of Admission May 05, 2017 at 1:10 am Home Medications & Allergies Home Medications Reviewed patient Home Medication Reconciliation Form Allergies Allergies Coded Allergies Penicillins (Verified Allergy, Unknown, 05/05/17) latex (Verified Allergy, Unknown, HIVES, 05/05/17) Past Kfbxijj-Rdpcxa-Ahbhaf Hx Patient Social History Marrital Status: Alcohol Use: Denies Use Recreational Drug Use: No Smoking Status: Never a Smoker 2nd Hand Smoke Exposure: No Physical Abuse Screen: No Sexual Abuse: No Recent Foreign Travel: No Contact w/other who traveled: No Recent Hopitalizations: No Recent Infectious Disease Expo: No Immunizations Up To Date Tetanus Booster (TDap): Unknown Pediatric: Yes Seasonal Allergies Seasonal Allergies: Yes (hayfever ) Surgeries Yes Breast, Gallbladder, Hysterectomy Respiratory No Currently Using CPAP: No Currently Using BIPAP: No Cardiovascular Yes Palpitations Neurological No Reproductive System : No Female Reproductive Disorders: Endometriosis TELEPHONE ADVICE NURSE History: Hysterectomy, Menopausal Genitourinary Yes Kidney Stones, UTI-Chronic Gastrointestinal Yes Polyps, Gall Bladder Disease Musculoskeletal Yes Arthritis, Fibromyalgia, Rheumatoid Arthritis, Fractures Endocrine History of Endocrine Disorders: Yes (pt reports possibel lupus is currently checking her for it) Endocrine Disorders: Hypothyroidsim HEENT History of HEENT Disorders: Yes HEENT Disorders: Cataract Loss of Vision: Denies Hearing Impairment: Denies Cancer Yes Skin, Breast Did You Recieve Any Treatments: No Type of Treatment: Chemotherapy, Surgical Intervention Psychosocial History of Psychiatric Problem: Yes Behavioral Health Disorders: Anxiety Integumentary History of Skin or Integumenta: Yes Skin/Integumentary Disorders: Eczema Blood Transfusions History of Blood Disorders: No Adverse Reaction to a Blood Tr: No Reviewed Nursing Assessment Reviewed/Agree w Nursing PMH: Yes Family Medical History Significant Family History: Heart Disease, CAD Under 55 Years Old, CAD Over 55 Years Old, Hypertension Family Hx: Asthma 19 FATHER Cardiovascular disease 19 FATHER 19 MOTHER G8 BROTHER (aortic dysfunction) Congenital heart disease 19 MOTHER Coronary arteriosclerosis Hypertension 19 FATHER 19 MOTHER Kidney disease G8 SISTER (kidney cancer ) Myocardial infarction 19 FATHER 19 MOTHER Thyroid disease 19 MOTHER (thyroid cancer) Review of Systems Constitutional: diaphoresis, No fever EENTM: No blurred vision, No double vision Respiratory: No cough, No dyspnea on exertion, No short of breath Cardiovascular: chest pain, palpitations, No syncope Gastrointestinal: No abdominal pain, No constipation, No diarrhea, No nausea, No vomiting Genitourinary: no symptoms reported Musculoskeletal: joint pain, neck pain Skin: no symptoms reported Psychiatric/Neurological: No Symptoms Reported Physical Exam Physical Exam Vital Signs Vital Sign - Last 12Hours Capillary Refill : Less Than 3 Seconds General Appearance: No Apparent Distress, WD/WN HEENT: PERRL/EOMI, Moist Mucous Membranes Neck: Normal Inspection, Supple Respiratory: Lungs Clear, Normal Breath Sounds, No Accessory Muscle Use, No Respiratory Distress Cardiovascular: Regular Rate, Rhythm, No JVD, No Murmur Gastrointestinal: Normal Bowel Sounds, Soft Extremity: Normal Capillary Refill, Non Tender, No Calf Tenderness, No Pedal Edema Neurologic/Psychiatric: Alert, Oriented x3, Normal Mood/Affect Skin: Normal Color, Warm/Dry Results Results/Procedures Lab Laboratory Tests 05/05/17 00:08 Assessment/Plan Admission Diagnosis Typical chest pain Diagnosis/Problems Diagnosis/Problems (1) Chest pain Status: Acute Permanent Comment: EKG upon arrival revealed sinus tachy with bigeminy. No acute ST changes. Cardiac enzymes negative. Denies any active chest pain at this time. Has multiple risk factors for underlying CAD. Planning for further evaluation with stress test, 2D Echo. Last Edited By: Diamante Shirley on May 05, 2017 8:48 am Assessment & Plan: Received ASA in ER Cardiology consulted, appreciate assistance and recommendations Discussed with Cardiology PA, will plan for stress echo today Await results for further plan/interventions Qualifiers: Qualified Codes: R07.89 - Other chest pain (2) Multifocal PVCs Status: Acute Assessment & Plan: Monitor on tele Likely source of palpitations continue to monitor. Start on beta celestino following stress Drinks 4-5 cups of caffeine per day, advised limiting (3) Hyperlipidemia Status: Chronic Assessment & Plan: LDL 143 HDL 35 Will start on statin ASCVD risk 7.7% Qualifiers: Qualified Codes: E78.2 - Mixed hyperlipidemia (4) Elevated glucose Assessment & Plan: Likely a fasting as done at midnight Will check a1c for risk stratification (5) Hypothyroidism Status: Chronic Permanent Comment: Last Edited By: Mook Manzo on May 05, 2017 10:59 am Assessment & Plan: TSH normal Continue on home supplement when able to PO Qualifiers: Qualified Codes: E03.9 - Hypothyroidism, unspecified (6) Prophylactic measure Assessment & Plan: Lovenox NPO NS at 50ml/hr Clinical Quality Measures AMI/AHF: ASA po Prior to arrival: No DVT/VTE Risk/Contraindication: Risk Factor Score Per Nursin RFS Level Per Nursing on Admit: 3=High MOOK MANZO MD May 05, 2017 10:53 am
--- NOTE | 2017-05-05 10:54 | Cardiac Procedure Note-CS/ASA ---
Pre-Procedure Note Pre-Op Procedure Note H&P Reviewed The H&P was reviewed, patient examined and no changes noted. Date H&P Reviewed: May 05, 2017 Time H&P Reviewed: 10:53 Conscious Sedation Pre-Proced Time Reviewed: 10:53 ASA Class: 3 Airway Mallampati Classification: (cowlitz appropriate class) I. II. III, IV Lungs Heart ASA score ASA 1: a normal healthy patient ASA 2: a patient with a mild systemic disease (mid diabetes, controlled hypertension, obesity x ASA 3: a patient with a severe systemic disease that limits activity (angina , COPD, prior Myocardial infarction) ASA 4: a patient with an incapacitating disease that is a constant threat to life (CHF, renal failure) ASA 5: a moribund patient not expected to survive 24 hrs. (ruptured aneurysm) ASA 6: a declared brain patient whose organs are being harvested. For emergent operations, add the letter E after the classification Grade 3 Sedation Plan: Analgesia, Amnesia, Plan communicated to team members, Discussed options with patient/fam, Discussed risks with patient/fam Note The patient is an appropriate candidate to undergo the planned procedure, sedation, and anesthesia. The patient immediately re-assessed prior to indication. BERNABE RAMIREZ MD May 05, 2017 10:54
[2017-05-05] MEDS ORDERED: NITROGLYCERIN DRIP 25 MG/D5W 0 ML IV ONE (11:10)
[2017-05-05] MEDS ORDERED: HEParin 1000 UNIT/ML (10ML VIAL) FOR BOLUS ONE (11:10)
[2017-05-05] MEDS ORDERED: EPTIFIBATIDE BOLUS 0 ML IV ONE (11:10)
[2017-05-05] MEDS ORDERED: meTOprolol 5 MG/5 ML (LOPRESSOR) VIAL ONE ×3 (11:16→11:21)
[2017-05-05] MEDS ORDERED: NS IV 1000 ML 1,000 ML IV SCH (11:38)
[2017-05-05] MEDS ORDERED: PATIENT MAY USE OWN MEDS, ALL PO SCH (11:45)
--- NOTE | 2017-05-05 11:53 | Cardiac Cath Report ---
Cardiac Cath Report Physician (s)/Creative Services Producer (s) Physician BERNABE RAMIREZ MD Pre-Procedure Diagnosis Pre-Procedure Diagnosis: CAD Post-Procedure Note Procedure Start Date: May 05, 2017 Procedure Start Time: 11:00 Name of Procedure: [facility] aortic arch angiogram Findings/Procedure Note PROCEDURE NOTE: After explaining the procedure to the patient, all pros and cons were explained, all questions were answered. The patient signed the consent and then she was placed on the cardiac catheterization laboratory. The patient was placed on the cardiac catheterization laboratory. Groin was prepped SL fashion local anesthesia was used. Sheath placed in the artery. Kristin right and left catheter were used to access the coronary system. Pigtail was used to access the left ventricular cavity. Left ventriculogram was not done, pressure was measured Aortic arch angiogram was done At the end of the procedure the sheath was removed. Closure device was used FINDINGS: Hemodynamics LV 165/22 and diastolic pressure of 22 Aorta 178/19 mean of 120 ANATOMY: Left Main is free of obstructive disease Left Anterior Descending is tortuous with mild disease at the mid LAD 30-40 percent stenosis nonobstructive disease Left Circumflex is nondominant artery with mild disease Right Coronory Artery is dominant artery with mild disease LV Gram was not done Aorta evaluation was done with aortic arch angiogram showing mild hypertensive changes, origin of the great neck vessels were normal, no aneurysm or dissection CONCLUSION: 1. Tortuous LAD with mild disease nonobstructive disease otherwise no significant obstructive disease 2. Normal aortic arch and great neck vessels 3. Multiple PVCs/ventricular bigeminy noted during procedure, responded to IV Lopressor DISCUSSION AND RECOMMENDATION: patient will be discharged home, continue on oral beta blockers as an outpatient follow-up Anesthesia Type: Conscious Sedation Estimated blood loss (mL): 10 ml Contrast Amount: 53 ml Total Radiation Dose: 373 mGy Post-Procedure Diagnosis Post-operative diagnosis: chest pain nonspecific etiology Frequent PVC Palpitation Coronary artery disease Hypertension Hyperlipidemia (1) Chest pain Assessment & Plan: cardiac catheterization showed mild disease nonobstructive disease. Qualifiers: Qualified Codes: R07.89 - Other chest pain (2) Multifocal PVCs Assessment & Plan: responded to IV Lopressor during cardiac catheter, I will start beta blockers as an outpatient (3) Hyperlipidemia Assessment & Plan: LDL 143 HDL 35 Will start on Lipitor 10 mg daily ASCVD risk 7.7% Qualifiers: Qualified Codes: E78.2 - Mixed hyperlipidemia (4) Elevated glucose Assessment & Plan: Likely a fasting as done at midnight Will check a1c for risk stratification (5) Hypothyroidism Assessment & Plan: TSH normal Continue on home supplement when able to PO Qualifiers: Qualified Codes: E03.9 - Hypothyroidism, unspecified (6) Prophylactic measure Assessment & Plan: Lovenox NPO NS at 50ml/hr BERNABE RAMIREZ MD May 05, 2017 11:53
[2017-05-05] MEDS ORDERED: METO-270 PO (11:54)
[2017-05-05] MEDS ORDERED: ATOR10TA PO (11:54)
--- NOTE | 2017-05-05 11:55 | Discharge Inst-Post CATH ---
Discharge Inst-CATH Post Cardiac Cath D/C Inst Follow Up/Plan Appointment with Dr. Rubalcava's office in 2 weeks CARDIAC CATH DISCHARGE INSTRUCTIONS *Hold Metformin for 48 hours post heart cath. ACTIVITY * Go Home directly and rest. * Limit activity of the leg (or wrist if it was used) for 7 days including aerobics, swimming, jogging, bicycling, etc. * Restrict stair-climbing for 7 days if possible, if not, climb up with your non -cath leg, then bring together on the same step. * Avoid lifting, pushing, pulling or excessive movement of the affected extremity for 7 days. * Customary sexual activity may be resumed after 2 days-use caution not to use a position that strains or causes pain to the affected extremity. * No driving for 24 hours. * NO SMOKING. * Avoid straining for bowel movements for 7 days. * Gentle walking on level ground is allowed. * Returning to work will depend on the type of procedure and the results. Your doctor will discuss this with you. CALL YOUR DOCTOR FOR ANY OF THE FOLLOWING: *If bleeding from the puncture site occurs- Apply gentle pressure to site with clean cloth and call your doctor or EMS. * If a knot or lump forms under the skin, increases in size, or causes pain. * If bruising appears to be worsening or moving further down your leg instead of disappearing. * Temperature above 101 F. CARE OF YOUR GROIN INCISION; * Bruising or purple discoloration of the skin near the puncture site is common. * You may shower only, no bathtub bathing for 5 days. Be careful to avoid slipping as your leg may feel stiff. * If a closure device was used on your femoral artery, please see the attached guide regarding care of the device and your leg. * REMOVE the dressing from your groin the next day after your procedure in the shower. CARE OF YOUR WRIST INCISION; * Bruising or purple discoloration of the skin near the puncture site is common. * You may shower. * DO NOT submerge wrist. * Remove dressing in 24 hours. BERNABE RUBALCAVA MD May 05, 2017 11:55
--- NOTE | 2017-05-05 15:50 | Discharge Summary-Hospitalist ---
Diagnosis/Chief Complaint Date of Admission May 05, 2017 at 01:10 Date of Discharge Discharge Date: May 05, 2017 Discharge Time: 1630 Admission Diagnosis Typical chest pain Discharge Diagnosis (1) Chest pain Status: Acute Assessment & Plan: cardiac catheterization showed mild disease nonobstructive disease. (2) Multifocal PVCs Status: Acute Assessment & Plan: responded to IV Lopressor during cardiac catheter, Start beta blockers as an outpatient (3) Hyperlipidemia Status: Chronic Assessment & Plan: LDL 143 HDL 35 Will start on Lipitor 10 mg daily ASCVD risk 7.7% (4) Elevated glucose Assessment & Plan: Likely a fasting as done at midnight Will check a1c for risk stratification (5) Hypothyroidism Status: Chronic Assessment & Plan: TSH normal Continue on home supplement when able to PO (6) Prophylactic measure Assessment & Plan: Lovenox Discharge Summary Discharge Physical Examination Allergies: Coded Allergies: Penicillins (Verified Allergy, Unknown, 05/05/17) latex (Verified Allergy, Unknown, HIVES, 05/05/17) Vitals & I&Os Vital Signs Date Time Temp Pulse Resp B/P (MAP) Pulse Ox O2 Delivery O2 Flow Rate FiO2 05/05/17 13:47 99.1 69 105/90 05/05/17 13:20 94 Room Air 05/05/17 12:30 18 Hospital Course Pt is a 67yoCF who presented to the [facility] with CC of palpitations, diaphoresis, and chest pain with exertion. She was admitted for observation and stress test was performed which was concerning for ischemia and telemetry showed ventricular bigeminy during it. She was taken for cardiac catheterization which showed nonobstructive disease. She recovered from catherization without complication and was started on metoprolol for rate control for palpitations along with a statin for risk stratification. She was discharged home in stable condition to follow up with Dr. Rubalcava in [address] Medina in 1-2 weeks. Labs (last 24 hrs) Laboratory Tests 05/05/17 00:08: White Blood Count 10.1, Red Blood Count 5.12, Hemoglobin 14.9, Hematocrit 44, Mean Corpuscular Volume 85, Mean Corpuscular Hemoglobin 29, Mean Corpuscular Hemoglobin Concent 34, Red Cell Distribution Width 13.8, Platelet Count 295, Mean Platelet Volume 10.9H, Neutrophils (%) (Auto) 36L, Lymphocytes (%) (Auto) 54H, Monocytes (%) (Auto) 8, Eosinophils (%) (Auto) 2, Basophils (%) (Auto) 0, Neutrophils # (Auto) 3.7, Lymphocytes # (Auto) 5.5H, Monocytes # (Auto) 0.8, Eosinophils # (Auto) 0.2, Basophils # (Auto) 0.0, Prothrombin Time 12.0L, INR Comment 0.9, Activated Partial Thromboplast Time 26, D-Dimer 0.31, Sodium Level 143, Potassium Level 3.7, Chloride Level 107, Carbon Dioxide Level 25, Anion Gap 11, Blood Urea Nitrogen 19H, Creatinine 1.02, Estimat Glomerular Filtration Rate 54, BUN/Creatinine Ratio 19, Glucose Level 118H, Calcium Level 9.9, Magnesium Level 2.3, Total Bilirubin 0.3, Aspartate Amino Transf (AST/SGOT) 13, Alanine Aminotransferase (ALT/SGPT) 17, Alkaline Phosphatase 82, Myoglobin 33.5 , Troponin I < 0.30, Total Protein 7.9, Albumin 4.4, Lipase 21, Thyroid Stimulating Hormone (TSH) 3.71 05/05/17 06:11: Myoglobin 29.5, Troponin I < 0.30, Hemoglobin A1c 6.1, Total Creatine Kinase 31 , Triglycerides Level 165H, Cholesterol Level 203H, LDL Cholesterol Direct 143H , VLDL Cholesterol 33, HDL Cholesterol 35L Discussion & Recommendations Would benefit from outpatient sleep study for evaluation of NISSA given snoring. Discharge Home Medications: Active Scripts Active Lipitor (Atorvastatin Calcium) 10 Mg Tablet 10 Mg PO DAILY Metoprolol Succinate 25 Mg Tab.er.24h 25 Mg PO DAILY Reported Gabapentin 300 Mg Capsule Paroxetine HCl 10 Mg Tablet Levothyroxine Sodium 50 Mcg Tablet Instructions to patient/family Please see electronic discharge instructions given to patient. Clinical Quality Measures AMI/AHF: ASA po Prior to arrival: No DVT/VTE Risk/Contraindication: Risk Factor Score Per Nursin RFS Level Per Nursing on Admit: 3=High Copy Copies To 1: SHEELA MEDINA MD Copies To 2: BERNABE RUBALCAVA MD Problem Qualifiers (1) Chest pain: Chest pain type: other chest pain Qualified Codes: R07.89 - Other chest pain (2) Hyperlipidemia: Hyperlipidemia type: mixed hyperlipidemia Qualified Codes: E78.2 - Mixed hyperlipidemia (3) Hypothyroidism: Hypothyroidism type: unspecified Qualified Codes: E03.9 - Hypothyroidism, unspecified MOOK HINTON MD May 05, 2017 15:50
[2017-05-05] MEDS ORDERED: LORA10TA7 PO (15:57)
--- NOTE | 2017-05-06 14:41 | STRESS TEST ---
DATE OF SERVICE: 05/05/2017 EXERCISE STRESS ECHOCARDIOGRAM REPORT REFERRING PHYSICIAN: Dr. Medina. Baseline heart rate is 101. Baseline blood pressure is 180/80. Baseline EKG is sinus rhythm with frequent PVCs. SUMMARY: The patient started exercising with a baseline heart rate, blood pressure and EKG mentioned above. She was able to exercise for a total of 3 minutes on standard Jose protocol. With peak exercise level, the patient was having frequent PVCs, ventricular couplets and ventricular bigeminy. Achieved maximum heart rate of 141, which is 92% of maximum expected heart rate. With peak exercise level, blood pressure was 188/104. During recovery, heart rate and blood pressure returned to baseline. EKG returned to baseline. Echocardiographic images were acquired and reviewed in the parasternal long axis, parasternal short axis, apical four chamber and apical two chamber views. Review of the images showed questionable mild hypokinesia at the anterior wall and anterolateral wall. CONCLUSION: 1. Poor exercise tolerance, a total of 3 minutes on standard Jose protocol, total of 4.6 METS achieving 92% of maximum expected heart rate. 2. Frequent premature ventricular contractions, ventricular couplets and ventricular bigeminy, became worse during exercise and in recovery. 3. Nondiagnostic EKG changes with exercise, returned to baseline during recovery. 4. Severe hypertensive response to exercise, returned to baseline during recovery. 5. Abnormal stress test with mild ischemic changes involving the anterior wall and anterolateral wall on echographic images. Job ID: [id number] DocumentID: [id number] Dictated Date: 05/05/2017 17:13:25 Art Gilder Date: 05/05/2017 20:08:08 Dictated By: BERNABE RAMIREZ MD
== END 2017-05-05 17:50 | disposition home or self-care (01) ==
LOC: EDUNIT# 23:51 → ER 23:54 → 4TH 05-05 01:10 → UNDOADMOB 05-05 01:10 → 4TH 05-05 01:30 → CATH 05-05 01:30 → 4TH 05-05 14:15 → CATH 05-05 17:50 → UNDODISOB 05-05 17:50
PROVIDERS: ATTEND Family Medicine
DX: R07.89 Other chest pain (principal); I25.10 Atherosclerotic heart disease of native coronary artery without angina pectoris; I10 Essential (primary) hypertension; E78.2 Mixed hyperlipidemia; I49.3 Ventricular premature depolarization; R94.39 Abnormal result of other cardiovascular function study; E03.9 Hypothyroidism, unspecified; Z79.899 Other long term (current) drug therapy; Z82.49 Family history of ischemic heart disease and other diseases of the circulatory system
CPT/HCPCS: 36221; 36415; 71010; 80053; 80061; 82550; 83036; 83690; 83735; 83874; 84443; 84484; 85025; 85379; 85610; 85730; 93005; 93041; 93306; 93458

== ENCOUNTER → 2017-05-19 | Outpatient (CLI) | payer MEDICARE, OTHER ==
[~2017-05-19] MED LIST changes: +ATOR10TA PO; -CATHETER FLUSH 10 ML SYR IV PRN; +GABA-488; -IOHEXOL 350 MG/ML 100 ML (OMNIPAQUE 350) VIAL IV ONE; +LEVO50TA6 PO; +LORA10TA7 PO; +METO-270 PO; -NS 100 ML (IVPB) BAG IV ONE; +PARO10TA3 PO
--- NOTE | 2017-05-19 16:17 | Diagnostic Imaging Report ---
PROCEDURE: US Carotid Duplex Bilateral. TECHNIQUE: Multiple real-time grayscale images were obtained over the carotid arteries in various projections bilaterally. Additional duplex Doppler and color Doppler images were also obtained. INDICATION: Fatigue. Dizziness. FINDINGS: Grayscale images demonstrate mild intimal irregularity compatible with minimal atherosclerotic plaque. There is color-flow demonstrating patency of the common, internal and external carotid arteries bilaterally. The vertebral arteries demonstrate antegrade flow bilaterally. Peak systolic velocities in the right ICA are 59, 89 and 165 cm/s and on the left are 67, 94 and 79 cm/s. ICA/CCA ratios are up to 2.3 on the right side and up to 0.8 on the left. The elevated velocity in the distal right ICA is probably related to vessel tortuosity with no significant stenosis. IMPRESSION: Estimated underlying stenosis is less than 50% bilaterally. Dictated by: Dictated on workstation # [id number]
== END ==
LOC: RAD 14:50
PROVIDERS: ATTEND Nurse Practitioner Family
DX: R53.83 Other fatigue (principal); I67.82 Cerebral ischemia; R42 Dizziness and giddiness; R53.1 Weakness
CPT/HCPCS: 93880

== ENCOUNTER 2017-09-23 20:36 | Outpatient (CLI) | payer MEDICARE, OTHER ==
[~2017-09-23 20:36] MED LIST changes: -METO-270 PO; +METO-387 PO
== END 2017-09-24 06:22 | disposition home or self-care (01) ==
LOC: SLEEP 20:36
PROVIDERS: ATTEND Nurse Practitioner Family
DX: G47.33 Obstructive sleep apnea (adult) (pediatric) (principal); R06.83 Snoring
CPT/HCPCS: 95810

== ENCOUNTER → 2017-10-15 | Outpatient (CLI) | payer MEDICARE, OTHER ==
--- NOTE | 2017-10-15 09:14 | Diagnostic Imaging Report ---
INDICATION: Left breast carcinoma. Correlation is made with prior study from 01/31/2016 and 01/24/2015. The current study was also evaluated with a Computer Aided Detection (CAD) system. FINDINGS: Scattered fibroglandular densities are identified in the right breast. The parenchymal pattern is stable. No mass or malignant-appearing microcalcifications are seen. The right axilla is unremarkable. There are benign calcifications present. IMPRESSION: No mammographic features suspicious for malignancy are identified. ACR BI-RADS Category 2: Benign findings. Result letter will be mailed to the patient. Note: At least 10% of breast cancer is not imaged by mammography. Dictated by: Dictated on workstation # [id number]
== END ==
LOC: RAD 08:15
PROVIDERS: ATTEND Nurse Practitioner Family
DX: Z08 Encounter for follow-up examination after completed treatment for malignant neoplasm (principal); Z85.3 Personal history of malignant neoplasm of breast

== ENCOUNTER → 2017-11-05 | Outpatient (CLI) | payer MEDICARE, OTHER ==
[2017-11-05 08:35] LABS: ALANINE AMINOTRANSFERASE 17 U/L (0-55); ALBUMIN 4.4 GM/DL (3.2-4.5); ALKALINE PHOSPHATASE 74 U/L (40-136); BILIRUBIN,TOTAL 0.4 MG/DL (0.1-1.0); BUN/CREATININE RATIO 25; CALCIUM 9.6 MG/DL (8.5-10.1); CARBON DIOXIDE 23 MMOL/L (21-32); CHLORIDE 109 MMOL/L (98-107); CHOLESTEROL 161 MG/DL (< 200); CREATININE SERUM 0.79 MG/DL (0.60-1.30); GFR ESTIMATED > 60; GLUCOSE 112 MG/DL (70-105); HDL CHOLESTEROL 42 MG/DL (40-60); SODIUM 143 MMOL/L (135-145); TOTAL PROTEIN 7.2 GM/DL (6.4-8.2); TRIGLYCERIDES 127 MG/DL (<150); VLDL CHOLESTEROL 25 MG/DL (5-40)
== END ==
LOC: LAB 07:55
PROVIDERS: ATTEND Physician Assistant
DX: I25.10 Atherosclerotic heart disease of native coronary artery without angina pectoris (principal); E78.5 Hyperlipidemia, unspecified; I34.0 Nonrheumatic mitral (valve) insufficiency; I49.3 Ventricular premature depolarization; R00.2 Palpitations
CPT/HCPCS: 36415; 80053; 80061

== ENCOUNTER 2017-11-27 11:00 | Outpatient (CLI) | payer MEDICARE, OTHER ==
[~2017-11-27] VITALS: Ht 167.6 cm; Wt 90.7 kg
[2017-11-27] MEDS ORDERED: METO-351 PO (11:26)
[2017-11-27] MEDS ORDERED: CALC-250 PO (11:26)
== END 2017-11-27 11:39 ==
LOC: PREOP 11:00
PROVIDERS: ATTEND Surgery
DX: Z01.818 Encounter for other preprocedural examination (principal); Z12.11 Encounter for screening for malignant neoplasm of colon

== ENCOUNTER 2017-12-02 07:26 | Day surgery (SDC) | payer MEDICARE, OTHER ==
[~2017-12-02] VITALS: Ht 167.6 cm; Wt 90.7 kg
[~2017-12-02 07:26] MED LIST changes: +CALC-250 PO; +METO-351 PO
--- OUTSIDE RECORDS SUMMARY | 2017-12-02 07:30 | XMS REPORT | Continuity of Care Document ---
Author Author [facility] Organization [facility] Address Unknown Phone Unavailable Allergies Active Description Code Type Severity Reaction Onset Reported/Identified Relationship to Patient Clinical Status Yes No Allergy Information Available [id number] Drug Allergy Unknown N/A 2016 Yes latex [id number] Drug Allergy Unknown HIVES 11/27/2017 Yes Penicillins [id number] Drug Allergy Unknown N/A 11/27/2017 Medications There is no data. Problems Date Dx Coded Attending Type Code Diagnosis Diagnosed By 06/08/2014 WILMER MONTGOMERY, SHEELA R Ot 727.51 06/08/2014 WILMER MONTGOMERY, SHEELA R Ot 822.0 06/08/2014 SHEELA GUILLEN MD R Ot E000.8 06/08/2014 WILMER MONTGOMERY, SHEELA R Ot E888.9 02/27/2015 WILMER MONTGOMERY, SHEELA R Ot V76.12 04/23/2015 Ot V76.12 04/23/2015 Ot 246.9 04/23/2015 Ot V18.11 04/23/2015 Ot 241.0 04/23/2015 Ot 241.0 04/23/2015 Ot 174.9 04/23/2015 Ot V76.11 04/23/2015 WILMER MONTGOMERY, SHEELA R Ot V76.12 04/23/2015 WILMER MONTGOMERY, SHEELA R Ot 729.5 04/23/2015 WILMER MONTGOMERY, SHEELA R Ot 959.7 04/23/2015 SHEELA GUILLEN MD R Ot E000.8 04/23/2015 WILMER MONTGOMERY, SHEELA [...] GUILLEN MD R Ot E03.9 HYPOTHYROIDISM, UNSPECIFIED 09/06/2016 SHEELA GUILLEN MD R Ot E03.9 HYPOTHYROIDISM, UNSPECIFIED 09/13/2016 WILMER MONTGOMERY SHEELA R Ot G56.92 UNSPECIFIED MONONEUROPATHY OF LEFT UPPER 09/13/2016 SHEELA GUILLEN MD R Ot M54.2 CERVICALGIA 09/24/2016 SHEELA GUILLEN MD R Ot E03.9 HYPOTHYROIDISM, UNSPECIFIED 09/26/2016 SHEELA GUILLEN MD R Ot E03.9 HYPOTHYROIDISM, UNSPECIFIED 10/04/2016 SHEELA GUILLEN MD R Ot G56.92 UNSPECIFIED MONONEUROPATHY OF LEFT UPPER 10/04/2016 WILMER MONTGOMERY SHEELA R Ot M54.2 CERVICALGIA 12/05/2016 NIKUNJ LAMA R Ot M48.02 SPINAL STENOSIS, CERVICAL REGION 12/27/2016 SHEELA GUILLEN MD R Ot G89.29 OTHER CHRONIC PAIN 12/27/2016 SHEELA GUILLEN MD R Ot M19.012 PRIMARY OSTEOARTHRITIS, LEFT SHOULDER 01/10/2017 SHEELA GUILLEN MD R Ot G89.29 OTHER CHRONIC PAIN 01/10/2017 SHEELA GUILLEN MD R Ot M19.012 PRIMARY OSTEOARTHRITIS, LEFT SHOULDER 01/30/2017 NIKUNJ LAMA R Ot M48.02 SPINAL STENOSIS, CERVICAL REGION 03/04/2017 JACKI PA, NIKUNJ R Ot M48.02 SPINAL STENOSIS, CERVICAL REGION 03/05/2017 JACKI CANDELARIO, NIKUNJ R Ot M48.02 SPINAL STENOSIS, CERVICAL REGION 04/08/2017 WILMER MONTGOMERY, SHEELA Lynch Ot M79.671 PAIN IN RIGHT FOOT 04/17/2017 SHEELA GUILLEN MD Ot M79.671 PAIN IN RIGHT FOOT 05/05/2017 MOOK HINTON MD Ot E03.9 HYPOTHYROIDISM, UNSPECIFIED 05/05/2017 MOOK HINTON MD, Ot E78.2 MIXED HYPERLIPIDEMIA 05/05/2017 MOOK HINTON MD Ot I10 ESSENTIAL (PRIMARY) HYPERTENSION 05/05/2017 MOOK HINTON MD, Ot I25.10 ATHSCL HEART DISEASE OF [place] CORONARY 05/05/2017 MOOK HINTON MD Ot I49.3 VENTRICULAR PREMATURE DEPOLARIZATION 05/05/2017 MOOK HINTON MD Ot R07.89 OTHER CHEST PAIN 05/05/2017 MOOK HINTON MD Ot R94.39 ABNORMAL RESULT OF OTHER CARDIOVASCULAR 05/05/2017 MOOK HINTON MD, Ot Z79.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 05/05/2017 MOOK HINTON MD Ot Z82.49 FAMILY HX OF ISCHEM HEART DIS AND OTH DI 05/27/2017 DIANN BUSH WEB PRESS ROLL TENDER Ot I67.82 CEREBRAL ISCHEMIA 05/27/2017 DIANN BUSH R WEB PRESS ROLL TENDER Ot R42 DIZZINESS AND GIDDINESS 05/27/2017 DIANN BUSH R WEB PRESS ROLL TENDER Ot R53.1 WEAKNESS 05/27/2017 ELEAZAR DIANN R WEB PRESS ROLL TENDER Ot R53.83 OTHER FATIGUE 06/16/2017 ELEAZAR DIANN R WEB PRESS ROLL TENDER Ot I67.82 CEREBRAL ISCHEMIA 06/16/2017 VI BUSHINA R WEB PRESS ROLL TENDER Ot R42 DIZZINESS AND GIDDINESS 06/16/2017 DIANN BUSH R WEB PRESS ROLL TENDER Ot R53.1 WEAKNESS 06/16/2017 VI BUSHINA R WEB PRESS ROLL TENDER Ot R53.83 OTHER FATIGUE 07/11/2017 DIANN BUSH R WEB PRESS ROLL TENDER Ot I67.82 CEREBRAL ISCHEMIA 07/11/2017 DIANN BUSH R WEB PRESS ROLL TENDER Ot R42 DIZZINESS AND GIDDINESS 07/11/2017 VI BUSHINA R WEB PRESS ROLL TENDER Ot R53.1 WEAKNESS 07/11/2017 VI BUSHINA R WEB PRESS ROLL TENDER Ot R53.83 OTHER FATIGUE 09/22/2017 DIANN BUSH R WEB PRESS ROLL TENDER Ot R06.83 SNORING 09/22/2017 SHEELA GUILLEN MD R Ot Z12.31 ENCNTR SCREEN MAMMOGRAM FOR MALIGNANT NE 09/22/2017 SHEELA GUILLEN MD R Ot Z85.3 PERSONAL HISTORY OF MALIGNANT NEOPLASM O 09/22/2017 WILMER MONTGOMERY, SHEELA R Ot E03.9 HYPOTHYROIDISM, UNSPECIFIED 09/22/2017 SHEELA GUILLEN MD R Ot E03.9 HYPOTHYROIDISM, UNSPECIFIED 09/22/2017 WILMER MONTGOMERY, SHEELA R Ot G56.92 UNSPECIFIED MONONEUROPATHY OF LEFT UPPER 09/22/2017 SHEELA GUILLEN MD R Ot M54.2 CERVICALGIA 09/22/2017 SHEELA GUILLEN MD R Ot G89.29 OTHER CHRONIC PAIN 09/22/2017 SHEELA GUILLEN MD R Ot M19.012 PRIMARY OSTEOARTHRITIS, LEFT SHOULDER 09/22/2017 SHEELA GUILLEN MD R Ot M79.671 PAIN IN RIGHT FOOT 09/22/2017 DIANN BUSH R WEB PRESS ROLL TENDER Ot I67.82 CEREBRAL ISCHEMIA 09/22/2017 DIANN BUSH R WEB PRESS ROLL TENDER Ot R42 DIZZINESS AND GIDDINESS 09/22/2017 DIANN BUSH R WEB PRESS ROLL TENDER Ot R53.1 WEAKNESS 09/22/2017 VI BUSHINA R WEB PRESS ROLL TENDER Ot R53.83 OTHER FATIGUE 09/22/2017 ELEAZAR DIANN R WEB PRESS ROLL TENDER Ot R06.83 SNORING 09/24/2017 ELEAZAR DIANN R WEB PRESS ROLL TENDER Ot G47.33 OBSTRUCTIVE SLEEP APNEA (ADULT) (PEDIATR 09/24/2017 ELEAZAR DIANN R WEB PRESS ROLL TENDER Ot R06.83 SNORING 09/29/2017 ELEAZAR DIANN R WEB PRESS ROLL TENDER Ot G47.33 OBSTRUCTIVE SLEEP APNEA (ADULT) (PEDIATR 09/29/2017 ELEAZAR DIANN R WEB PRESS ROLL TENDER Ot R06.83 SNORING 10/16/2017 VI BUSHINA R WEB PRESS ROLL TENDER Ot Z08 ENCNTR FOR FOLLOW-UP EXAM AFTER TRTMT FO 10/16/2017 DIANN BUSH R WEB PRESS ROLL TENDER Ot Z85.3 PERSONAL HISTORY OF MALIGNANT NEOPLASM O 11/05/2017 WILMER MONTGOMERY, SHEELA R Ot Z12.31 ENCNTR SCREEN MAMMOGRAM FOR MALIGNANT NE 11/05/2017 WILMER MONTGOMERY, SHEELA R Ot Z85.3 PERSONAL HISTORY OF MALIGNANT NEOPLASM O 11/05/2017 WILMER MONTGOMERY, SHEELA R Ot E03.9 HYPOTHYROIDISM, UNSPECIFIED 11/05/2017 WILMER MONTGOMERY SHEELA R Ot E03.9 HYPOTHYROIDISM, UNSPECIFIED 11/05/2017 WILMER MONTGOMERY, SHEELA R Ot G56.92 UNSPECIFIED MONONEUROPATHY OF LEFT UPPER 11/05/2017 SHEELA GUILLEN MD R Ot M54.2 CERVICALGIA 11/05/2017 WILMER MONTGOMERY, SHEELA R Ot G89.29 OTHER CHRONIC PAIN 11/05/2017 SHEELA GUILLEN MD R Ot M19.012 PRIMARY OSTEOARTHRITIS, LEFT SHOULDER 11/05/2017 SHEELA GUILLEN MD R Ot M79.671 PAIN IN RIGHT FOOT 11/05/2017 DIANN BUSH WEB PRESS ROLL TENDER Ot I67.82 CEREBRAL ISCHEMIA 11/05/2017 DIANN BUSH WEB PRESS ROLL TENDER Ot R42 DIZZINESS AND GIDDINESS 11/05/2017 DIANN BUSH WEB PRESS ROLL TENDER Ot R53.1 WEAKNESS 11/05/2017 DIANN BUSH WEB PRESS ROLL TENDER Ot R53.83 OTHER FATIGUE 11/05/2017 DIANN BUSH WEB PRESS ROLL TENDER Ot Z08 ENCNTR FOR FOLLOW-UP EXAM AFTER TRTMT FO 11/05/2017 DIANN BUSH WEB PRESS ROLL TENDER Ot Z85.3 PERSONAL HISTORY OF MALIGNANT NEOPLASM O 11/06/2017 CONCEPCION GAONA Ot E78.5 HYPERLIPIDEMIA, UNSPECIFIED 11/06/2017 CONCEPCION GAONA Ot I25.10 ATHSCL HEART DISEASE OF [place] CORONARY 11/06/2017 CONCEPCION GAONA Ot I34.0 NONRHEUMATIC MITRAL (VALVE) INSUFFICIENC 11/06/2017 CONCEPCION GAONA Ot I49.3 VENTRICULAR PREMATURE DEPOLARIZATION 11/06/2017 CONCEPCION GAONA Ot R00.2 PALPITATIONS 11/11/2017 CONCEPCION GAONA Ot E78.5 HYPERLIPIDEMIA, UNSPECIFIED 11/11/2017 CONCEPCION GAONA K Ot I25.10 ATHSCL HEART DISEASE OF [place] CORONARY 11/11/2017 CHIP CANDELARIO CONCEPCION K Ot I34.0 NONRHEUMATIC MITRAL (VALVE) INSUFFICIENC 11/11/2017 CHIP CANDELARIO CONCEPCION K Ot I49.3 VENTRICULAR PREMATURE DEPOLARIZATION 11/11/2017 CHIP CANDELARIO CONCEPCION K Ot R00.2 PALPITATIONS 11/25/2017 CHIP CANDELARIO CONCEPCION K Ot E78.5 HYPERLIPIDEMIA, UNSPECIFIED 11/25/2017 CHIP CANDELARIO CONCEPCION K Ot I25.10 ATHSCL HEART DISEASE OF [place] CORONARY 11/25/2017 CHIP CANDELARIO CONCEPCION K Ot I34.0 NONRHEUMATIC MITRAL (VALVE) INSUFFICIENC 11/25/2017 CHIP CANDELARIO CONCEPCION K Ot I49.3 VENTRICULAR PREMATURE DEPOLARIZATION 11/25/2017 CHIP CANDELARIO CONCEPCION K Ot R00.2 PALPITATIONS 11/25/2017 NIKKI FERNANDEZ DO Ot Z01.818 ENCOUNTER FOR OTHER PREPROCEDURAL EXAMIN 11/25/2017 NIKKI FERNANDEZ DO Ot Z12.11 ENCOUNTER FOR SCREENING FOR MALIGNANT NE 11/27/2017 NIKKI FERNANDEZ DO Ot Z01.818 ENCOUNTER FOR OTHER PREPROCEDURAL EXAMIN 11/27/2017 NIKKI FERNANDEZ DO Ot Z12.11 ENCOUNTER FOR SCREENING FOR MALIGNANT NE 11/28/2017 NIKKI FERNANDEZ DO Ot Z01.818 ENCOUNTER FOR OTHER PREPROCEDURAL EXAMIN 11/28/2017 NIKKI FERNANDEZ DO Ot Z12.11 ENCOUNTER FOR SCREENING FOR MALIGNANT NE Procedures There is no data. Results Test Result Range THYROID STIMULATING HORMONE - 09/02/16 11:25 THYROID STIMULATING HORMONE 1.66 u[iU]/mL 0.35-4.94 Comprehensive metabolic panel - 09/02/16 11:25 Serum or plasma sodium measurement (moles/volume) 140 mmol/L 135-145 Serum or plasma potassium measurement (moles/volume) 4.1 mmol/L 3.6-5.0 Serum or plasma chloride measurement (moles/volume) 106 mmol/L 98-107 Carbon dioxide 26 mmol/L 21-32 Serum or plasma anion gap determination (moles/volume) 8 mmol/L 5-14 Serum or plasma urea nitrogen measurement (mass/volume) 16 mg/dL 7-18 Serum or plasma creatinine measurement (mass/volume) 0.76 mg/dL 0.60-1.30 Serum or plasma urea nitrogen/creatinine mass [...] plasma albumin measurement (mass/volume) 4.4 g/dL 3.2-4.5 [id number] - 09/02/16 11:25 Screening antinuclear antibody (ULYSSES) assay by enzyme immunoassay Positive <1:80 Anaplasma phagocytophilum IgG ab [titer] in serum <1: 80 Serum nuclear antibody pattern interpretation [employer] NRG Complete blood count (CBC) with automated white blood cell (WBC) differential - 05/05/17 00:08 Blood leukocytes automated count (number/volume) 10.1 10*3/uL 4.3-11.0 Blood erythrocytes automated count (number/volume) 5.12 10*6/uL 4.35-5.85 Venous blood hemoglobin measurement (mass/volume) 14.9 g/dL 11.5-16.0 Blood hematocrit (volume fraction) 44 % 35-52 Automated erythrocyte mean corpuscular volume 85 [foz_us] 80-99 Automated erythrocyte mean corpuscular hemoglobin (mass per erythrocyte) 29 pg 25-34 Automated erythrocyte mean corpuscular hemoglobin concentration measurement ( mass/volume) 34 g/dL 32-36 Automated erythrocyte distribution width ratio 13.8 % 10.0-14.5 Automated blood platelet count (count/volume) 295 10*3/uL 130-400 Automated blood platelet mean volume measurement 10.9 [foz_us] 7.4-10.4 Automated blood neutrophils/100 leukocytes 36 % 42-75 Automated blood lymphocytes/100 leukocytes 54 % 12-44 Blood monocytes/100 leukocytes 8 % 0-12 Automated blood eosinophils/100 leukocytes 2 % 0-10 Automated blood basophils/100 leukocytes 0 % 0-10 Blood neutrophils automated count (number/volume) 3.7 10*3 1.8-7.8 Blood lymphocytes automated count (number/volume) 5.5 10*3 1.0-4.0 Blood monocytes automated count (number/volume) 0.8 10*3 0.0-1.0 Automated eosinophil count 0.2 10*3/uL 0.0-0.3 Automated blood basophil count (count/volume) 0.0 10*3/uL 0.0-0.1 PT panel in platelet poor plasma by coagulation assay - 05/05/17 00:08 Prothrombin time (PT) in platelet poor plasma by coagulation assay 12.0 s 12.2-14.7 INR in platelet poor plasma or blood by coagulation assay 0.9 0.8-1.4 Activated partial thromboplastin time (aPTT) in platelet poor plasma bycoagulation assay - 05/05/17 00:08 Activated partial thromboplastin time (aPTT) in platelet poor plasma bycoagulation assay 26 s 24-35 Fibrin D-dimer FEU measurement in platelet poor plasma (mass/volume) - 00:08 Fibrin D-dimer FEU measurement in platelet poor plasma (mass/volume) 0.31 ug/mL 0.00-0.49 Comprehensive metabolic panel - 05/05/17 00:08 Serum or plasma sodium measurement (moles/volume) 143 mmol/L 135-145 Serum or plasma potassium measurement (moles/volume) 3.7 mmol/L 3.6-5.0 Serum or plasma chloride measurement (moles/volume) 107 mmol/L 98-107 Carbon dioxide 25 mmol/L 21-32 Serum or plasma anion gap determination (moles/volume) 11 mmol/L 5-14 Serum or plasma urea nitrogen measurement (mass/volume) 19 mg/dL 7-18 Serum or plasma creatinine measurement (mass/volume) 1.02 mg/dL 0.60-1.30 Serum or plasma urea nitrogen/creatinine mass ratio 19 NRG Serum or plasma creatinine measurement with calculation of estimated glomerular filtration rate 54 NRG Serum or plasma glucose measurement (mass/volume) 118 mg/dL 70-105 Serum or plasma calcium measurement (mass/volume) 9.9 mg/dL 8.5-10.1 Serum or plasma total bilirubin measurement (mass/volume) 0.3 mg/dL 0.1-1.0 Serum or plasma alkaline phosphatase measurement (enzymatic activity/volume) 82 U/L 40-136 Serum or plasma aspartate aminotransferase measurement (enzymatic activity/ volume) 13 U/L 5-34 Serum or plasma alanine aminotransferase measurement (enzymatic activity/volume ) 17 U/L 0-55 Serum or plasma protein measurement (mass/volume) 7.9 g/dL 6.4-8.2 Serum or plasma albumin measurement (mass/volume) 4.4 g/dL 3.2-4.5 Magnesium - 05/05/17 00:08 Magnesium 2.3 mg/dL 1.8-2.4 Serum or plasma troponin i.cardiac measurement (mass/volume) - 05/05/17 00:08 Serum or plasma troponin i.cardiac measurement (mass/volume) < ng/ mL <0.30 Myoglobin, serum - 05/05/17 00:08 Myoglobin, serum 33.5 ng/mL 10.0-92.0 Lipase - 05/05/17 00:08 Lipase 21 U/L 8-78 THYROID STIMULATING HORMONE - 05/05/17 00:08 THYROID STIMULATING HORMONE 3.71 u[iU]/mL 0.35-4.94 Serum or plasma creatine kinase measurement (enzymatic activity/volume) - 05/05 06:11 Serum or plasma creatine kinase measurement (enzymatic activity/volume) 31 U/L 29-168 Serum or plasma troponin i.cardiac measurement (mass/volume) - 05/05/17 06:11 Serum or plasma troponin i.cardiac measurement (mass/volume) < ng/ mL <0.30 Myoglobin, serum - 05/05/17 06:11 Myoglobin, serum 29.5 ng/mL 10.0-92.0 Lipid 1996 panel - 05/05/17 06:11 Serum or plasma triglyceride measurement (mass/volume) 165 mg/dL <150 Serum or plasma cholesterol measurement (mass/volume) 203 mg/dL < 200 Serum or plasma cholesterol in HDL measurement (mass/volume) 35 mg/ dL 40-60 Cholesterol in LDL [mass/volume] in serum or plasma by direct assay 143 mg/dL 1-129 Serum or plasma cholesterol in VLDL measurement (mass/volume) 33 mg/ dL 5-40 Hemoglobin A1c - 05/05/17 06:11 Hemoglobin A1c 6.1 % 4.5-6.2 Encounters ACCT No. Visit Date/Time Discharge Status Pt. Type Provider Facility Loc./Unit Complaint [id number] 11/27/2017 11:00:00 11/27/2017 11:39:00 DIS Outpatient NIKKI FERNANDEZ DO [facility] PREOP COLONOSCOPY [id number] 11/05/2017 07:55:00 11/05/2017 23:59:59 CLS Outpatient CONCEPCION GAONA [facility] LAB I25.10,E78.2, I34.0,I49.3,R00.2 [id number] 10/15/2017 08:15:00 10/15/2017 23:59:59 CLS Outpatient DIANN BUSH APRN [facility] RAD HX OF BREAST CA [id number] 09/23/2017 20:36:00 09/24/2017 06:22:00 DIS Outpatient DIANN BUSH APRN [facility] SLEEP SNORING [id number] 06/11/2017 14:41:00 06/11/2017 23:59:59 CLS Preadmit DIANN BUSH APRN [facility] SLEEP SNORING [id number] 05/20/2017 09:00:00 05/20/2017 23:59:59 CLS Preadmit NIKKI FERNANDEZ DO [facility] ENDO SCREENING [id number] 05/19/2017 14:50:00 05/19/2017 23:59:59 CLS Outpatient DIANN BUSH APRN [facility] RAD CEREBRAL ISCHEMIA I67.82 [id number] 05/05/2017 01:30:00 05/05/2017 17:50:00 DIS Outpatient JAMAAL MONTGOMERY, MOOK Mcclellan [facility] CATH CHEST PAIN, MULTIFOCAL PVC [id number] 03/18/2017 16:36:00 03/18/2017 23:59:59 CLS Outpatient SHEELA GUILLEN MD [facility] RAD M79.671 [id number] 03/05/2017 00:08:00 03/05/2017 23:59:59 CLS Preadmit NIKUNJ LAMA [facility] REHAB CERVICAL STENOSIS [id number] 02/21/2017 10:00:00 03/04/2017 00:01:00 DIS Outpatient NIKUNJ LAMA R [facility] REHAB CERVICAL STENOSIS [id number] 12/20/2016 11:32:00 12/20/2016 23:59:59 CLS Outpatient SHEELA GUILLEN MD [facility] RAD CHRONIC LT SHOULDER PAIN M25.512 [id number] 09/12/2016 07:42:00 09/12/2016 23:59:59 CLS Outpatient SHEELA GUILLEN MD [facility] RAD NECK AND SHOULDER PAIN [id number] 09/05/2016 08:06:00 09/05/2016 23:59:59 CLS Outpatient SHEELA GUILLEN MD [facility] RAD ACQUIRED HYPOTHYROIDISM [id number] 09/02/2016 10:23:00 09/02/2016 23:59:59 CLS Outpatient SHEELA GUILLEN MD [facility] LAB ACQUIRED HYPOTHYROIDISM [id number] 01/31/2016 11:08:00 01/31/2016 23:59:59 CLS Outpatient SHEELA GUILLEN MD [facility] RAD SCREENING [id number] 01/24/2015 13:35:00 01/24/2015 23:59:59 CLS Outpatient SHEELA GUILLEN MD [facility] RAD [id number] 03/24/2014 14:41:00 03/24/2014 23:59:59 CLS Outpatient SHEELA GUILLEN MD [facility] RAD [id number] 03/23/2014 14:32:00 03/23/2014 23:59:59 CLS Outpatient SHEELA GUILLEN MD [facility] RAD [id number] 01/12/2014 15:28:00 01/12/2014 23:59:59 CLS Outpatient SHEELA GUILLEN MD [facility] RAD [id number] 10/20/2013 09:45:00 10/20/2013 23:59:59 CLS Outpatient SHEELA GUILLEN MD [facility] RAD [id number] 12/12/2011 13:35:00 Document Registration [id number] 10/10/2010 14:12:00 Document Registration [id number] 03/30/2010 10:00:00 Document Registration [id number] 12/19/2009 10:29:00 Document Registration [id number] 12/12/2009 09:08:00 Document Registration [email or web address] 01/24/2015 13:35:29 ACT Document Registration
[2017-12-02] MEDS ORDERED: LACTATED RINGERS 1,000 ML IV ONE (07:38)
[2017-12-02] MEDS ORDERED: LACTATED RINGERS 1,000 ML IV STA (07:39)
[2017-12-02 07:53] VITALS: BP 154/67
--- NOTE | 2017-12-02 08:13 | Progress Note-Pre Operative ---
Pre-Operative Progress Note H&P Reviewed The H&P was reviewed, patient examined and no changes noted. Date Seen by Provider: December 02, 2017 Time Seen by Provider: 08:13 Date H&P Reviewed: December 02, 2017 Time H&P Reviewed: 08:13 Pre-Operative Diagnosis: screening colonoscopy NIKKI FERNANDEZ DO December 02, 2017 08:13
[2017-12-02] MEDS ORDERED: MIDAZOLAM 2 MG/2 ML (VERSED) VIAL ONE (08:28)
[2017-12-02] MEDS ORDERED: PROPOFOL INJECTION 50 ML IV ONE (08:28)
--- NOTE | 2017-12-02 09:41 | Progress Note-Post Operative ---
Post-Operative Progess Note Surgeon (s)/Elevator Erector Helper (s) Surgeon NIKKI FERNANDEZ DO Elevator Erector Helper: na Pre-Operative Diagnosis screening colonoscopy Post-Operative Diagnosis colon polyps, diverticulosis Procedure & Operative Findings Date of Procedure 12/02/17 Procedure Performed/Findings colonoscopy c cold biopsy descending colon polyp and snare polypectomy x 2 sigmoid polyps Anesthesia Type per air crew supervisor Estimated Blood Loss Estimated blood loss (mL): minimal Specimens/Packing Specimens Removed descending colon polyp, sigmoid polyp x 2 NIKKI FERNANDEZ DO December 02, 2017 09:41
--- NOTE | 2017-12-02 09:42 | Discharge Inst-Simple/Standard ---
Discharge Inst-Standard Patient Instructions/Follow Up Plan of Care/Instructions/FU: 2 weeks Dominique Activity as Tolerated: Yes Discharge Diet: Regular Diet (high fiber) NIKKI FERNANDEZ DO December 02, 2017 09:42
[2017-12-02 10:18] VITALS: BP 137/63
[2017-12-02 10:20] VITALS: BP 137/63
--- NOTE | 2017-12-02 14:30 | Anesthesia-General Post-Op ---
MAC Patient Condition Mental Status/LOC: Same as Preop Cardiovascular: Satisfactory Nausea/Vomiting: Absent Respiratory: Satisfactory Pain: Controlled Complications: Absent Post Op Complications Complications None Follow Up Care/Instructions Patient Instructions None needed. Anesthesiology Discharge Order Discharge Order Patient was seen after the procedure and she was doing well, no complaints, stable vital signs, no apparent adverse anesthesia problems. WILD KENNEY DO December 02, 2017 14:30
--- NOTE | 2017-12-02 20:06 | OPERATIVE REPORT ---
DATE OF SERVICE: 12/02/2017 PREOPERATIVE DIAGNOSIS: Screening colonoscopy. POSTOPERATIVE DIAGNOSES: Colon polyps and diverticulosis. PROCEDURE: Colonoscopy with cold biopsy, descending colon polyp and snare polypectomy x2 of sigmoid polyps. SURGEON: Nikki Fox DO ANESTHESIA: Per CORPORATE ACCOUNTANT. ESTIMATED BLOOD LOSS: Minimal. COMPLICATIONS: None. INDICATIONS: The patient is a 67-year-old female due for screening colonoscopy. She understands risks and benefits of procedure and wished to proceed with procedure. Consent was signed on chart. DESCRIPTION OF PROCEDURE: The patient was taken to the endoscopy suite, placed in left lateral position. Timeout was performed. A digital rectal exam was performed. There is some slight internal and external hemorrhoids. The scope was inserted into the rectum advanced all the way to the cecum with minimal difficulty. Prep was adequate. Scope was then slowly retracted back. There were no polyps, mass or ulcerations within the cecum, ascending and transverse colon. In the descending colon, a very tiny polyp was present, which a cold biopsy was performed with just very minimal bleeding afterwards. The scope was then continued and slowly retracted back. In the sigmoid colon, there was a minimal amount of diverticulosis present. There are also two larger polyps and snare polypectomies were performed on these and achieved removal. Specimens were sent for pathological review. Once in the rectum, scope was also retroflexed noting just hemorrhoidal disease and no other pathology. Scope was returned to its normal position, slowly withdrawn and completely removed. The patient tolerated procedure well without any complications. She was taken to recovery room in stable condition. RECOMMENDATIONS: The patient will follow up on pathology in approximately 2 weeks. I would recommend repeat colonoscopy in 1 year due to the size of the polyps in the sigmoid colon. Job ID: [id number] DocumentID: [id number] Dictated Date: 12/02/2017 09:45:18 Real Estate Broker Date: 12/02/2017 20:06:08 Dictated By: NIKKI FOX DO
== END 2017-12-02 10:26 | disposition home or self-care (01) ==
LOC: ENDO 07:26
PROVIDERS: ATTEND Surgery
DX: Z12.11 Encounter for screening for malignant neoplasm of colon (principal); D12.2 Benign neoplasm of ascending colon; D12.5 Benign neoplasm of sigmoid colon; K57.30 Diverticulosis of large intestine without perforation or abscess without bleeding; K64.9 Unspecified hemorrhoids; I25.10 Atherosclerotic heart disease of native coronary artery without angina pectoris; I10 Essential (primary) hypertension; J45.909 Unspecified asthma, uncomplicated; Z79.899 Other long term (current) drug therapy
CPT/HCPCS: 88305

== ENCOUNTER → 2017-12-24 | Outpatient (CLI) | payer MEDICARE, OTHER ==
[2017-12-24 10:18] LABS: BASOPHILS % (AUTO) 0 % (0-10); EOSINOPHILS # (AUTO) 0.1 10^3/uL (0.0-0.3); EOSINOPHILS % (AUTO) 2 % (0-10); HEMATOCRIT 40 % (35-52); HEMOGLOBIN 13.4 G/DL (11.5-16.0); LYMPHOCYTES # (AUTO) 2.8 X 10^3 (1.0-4.0); LYMPHOCYTES % (AUTO) 49 % (12-44); MEAN CORPUSCULAR HEMOGLOBIN 30 PG (25-34); MEAN CORPUSCULAR HGB CONC 34 G/DL (32-36); MEAN CORPUSCULAR VOLUME 88 FL (80-99); MEAN PLATELET VOLUME 10.3 FL (7.4-10.4); MONOCYTES # (AUTO) 0.4 X 10^3 (0.0-1.0); MONOCYTES % (AUTO) 8 % (0-12); NEUTROPHILS # (AUTO) 2.3 X 10^3 (1.8-7.8); NEUTROPHILS % (AUTO) 41 % (42-75); PLATELET COUNT 290 10^3/uL (130-400); RED BLOOD COUNT 4.51 10^6/uL (4.35-5.85); RED CELL DISTRIBUTION WIDTH 13.6 % (10.0-14.5); WHITE BLOOD COUNT 5.7 10^3/uL (4.3-11.0)
== END ==
LOC: LAB 09:58
PROVIDERS: ATTEND Nurse Practitioner Family
DX: E03.9 Hypothyroidism, unspecified (principal); R53.83 Other fatigue; Z85.3 Personal history of malignant neoplasm of breast
CPT/HCPCS: 36415; 84443; 85025

== ENCOUNTER 2018-12-01 05:38 | Outpatient (CLI) | payer MEDICARE, OTHER ==
[~2018-12-01] VITALS: Ht 165.1 cm; Wt 93.7 kg
[~2018-12-01 05:38] MED LIST changes: +ACET-2267 PO; +ATOR10TA66 PO; +CLOB15CR2 TP; +LISI-552 PO; +METO-352 PO
[2018-12-01] MEDS ORDERED: LORA10TA7 PO (10:12)
== END 2018-12-01 10:16 | disposition home or self-care (01) ==
LOC: PREOP 05:38
PROVIDERS: ATTEND Surgery
DX: Z01.818 Encounter for other preprocedural examination (principal)

== ENCOUNTER 2018-12-29 09:54 | Day surgery (SDC) | payer MEDICARE, OTHER ==
[~2018-12-29] VITALS: Ht 165.1 cm; Wt 93.7 kg
--- OUTSIDE RECORDS SUMMARY | 2018-12-29 09:58 | XMS REPORT | Continuity of Care Document ---
Author Organization Unknown Address Unknown Allergies Active Description Code Type Severity Reaction Onset Reported/Identified Relationship to Patient Clinical Status Yes No Allergy Information Available [id number] Drug Allergy Unknown N/A 09/05/2016 Yes latex [id number] Drug Allergy Unknown HIVES 11/27/2017 Yes Penicillins [id number] Drug Allergy Unknown N/A 11/27/2017 Yes latex [id number] Drug Allergy Mild HIVES 12/01/2018 Yes meperidine [id number] Drug Allergy Mild ITCHING 12/01/2018 Yes Penicillins [id number] Drug Allergy Mild RASH 12/01/2018 Medications There is no data. Problems Date [...] ENCNTR SCREEN MAMMOGRAM FOR MALIGNANT NE 03/07/2016 SEHELA GUILLEN MD R Ot Z85.3 PERSONAL HISTORY [...] MD R Ot E03.9 HYPOTHYROIDISM, UNSPECIFIED 09/13/2016 SHEELA GUILLEN MD R Ot G56.92 UNSPECIFIED MONONEUROPATHY OF LEFT UPPER 09/13/2016 SHEELA GUILLEN MD R Ot M54.2 CERVICALGIA 09/24/2016 SHEELA GUILLEN MD R Ot E03.9 HYPOTHYROIDISM, UNSPECIFIED 09/26/2016 SHEELA GUILLEN MD R Ot E03.9 HYPOTHYROIDISM, UNSPECIFIED 10/04/2016 SHEELA GIULLEN MD R Ot G56.92 UNSPECIFIED MONONEUROPATHY OF LEFT UPPER 10/04/2016 SHEELA GUILLEN MD R Ot M54.2 CERVICALGIA 12/05/2016 NIKUNJ LAMA [...] Ot M48.02 SPINAL STENOSIS, CERVICAL REGION 03/04/2017 NIKUNJ LAMA R Ot M48.02 SPINAL STENOSIS, CERVICAL REGION 03/05/2017 NIKUNJ LAMA R Ot M48.02 SPINAL STENOSIS, CERVICAL REGION 04/08/2017 SHEELA GUILLEN MD R Ot M79.671 PAIN IN RIGHT FOOT 04/17/2017 SHEELA GUILLEN MD Ot M79.671 PAIN IN RIGHT FOOT 05/05/2017 MOOK HINTON MD Ot E03.9 HYPOTHYROIDISM, UNSPECIFIED 05/05/2017 MOOK HINTON MD Ot E78.2 MIXED HYPERLIPIDEMIA 05/05/2017 MOOK HINTON MD Ot I10 ESSENTIAL (PRIMARY) HYPERTENSION 05/05/2017 MOOK HINTON MD, Ot I25.10 ATHSCL HEART DISEASE OF [place] CORONARY 05/05/2017 MOOK HINTON MD Ot I49.3 VENTRICULAR PREMATURE DEPOLARIZATION 05/05/2017 MOOK HINTON MD Ot R07.89 OTHER CHEST PAIN 05/05/2017 MOOK HINTON MD Ot R94.39 ABNORMAL RESULT OF OTHER CARDIOVASCULAR 05/05/2017 MOOK HINTON MD Ot Z79.899 OTHER PIECE HAND (CURRENT) DRUG THERAPY 05/05/2017 MOOK HINTON MD, Ot Z82.49 FAMILY HX OF I[place]HE[place] HEART DIS AND OTH DI 05/27/2017 DIANN BUSH INFORMATION TECHNOLOGY ASSOCIATE Ot I67.82 CEREBRAL ISCHEMIA 05/27/2017 DIANN BUSH INFORMATION TECHNOLOGY ASSOCIATE Ot R42 DIZZINESS AND GIDDINESS 05/27/2017 DIANN BUSH R INFORMATION TECHNOLOGY ASSOCIATE Ot R53.1 WEAKNESS 05/27/2017 DIANN BUSH R INFORMATION TECHNOLOGY ASSOCIATE Ot R53.83 OTHER FATIGUE 06/16/2017 DIANN BUSH INFORMATION TECHNOLOGY ASSOCIATE Ot I67.82 CEREBRAL ISCHEMIA 06/16/2017 DIANN BUSH INFORMATION TECHNOLOGY ASSOCIATE Ot R42 DIZZINESS AND GIDDINESS 06/16/2017 DIANN BUSH INFORMATION TECHNOLOGY ASSOCIATE Ot R53.1 WEAKNESS 06/16/2017 ELEAZAR, DIANN R INFORMATION TECHNOLOGY ASSOCIATE Ot R53.83 OTHER FATIGUE 07/11/2017 ELEAZAR DIANN R INFORMATION TECHNOLOGY ASSOCIATE Ot I67.82 CEREBRAL ISCHEMIA 07/11/2017 ELEAZAR DIANN R INFORMATION TECHNOLOGY ASSOCIATE Ot R42 DIZZINESS AND GIDDINESS 07/11/2017 ELEAZAR DIANN R INFORMATION TECHNOLOGY ASSOCIATE Ot R53.1 WEAKNESS 07/11/2017 ELEAZAR DIANN R INFORMATION TECHNOLOGY ASSOCIATE Ot R53.83 OTHER FATIGUE 09/22/2017 VI BUSHINA R INFORMATION TECHNOLOGY ASSOCIATE Ot R06.83 SNORING 09/22/2017 WILMER MONTGOMERY, SHEELA R Ot Z12.31 ENCNTR SCREEN MAMMOGRAM FOR MALIGNANT NE 09/22/2017 WILMER MONTGOMERY, SHEELA R Ot Z85.3 PERSONAL HISTORY OF MALIGNANT NEOPLASM O 09/22/2017 WILMER MONTGOMERY, SEHELA R Ot E03.9 HYPOTHYROIDISM, UNSPECIFIED 09/22/2017 SHEELA GUILLEN MD R Ot E03.9 HYPOTHYROIDISM, UNSPECIFIED 09/22/2017 WILMER MONTGOMERY, SHEELA R Ot G56.92 UNSPECIFIED MONONEUROPATHY OF LEFT UPPER 09/22/2017 WILMER MONTGOMERY, SHEELA R Ot M54.2 CERVICALGIA 09/22/2017 WILMER MONTGOMERY, SHEELA R Ot G89.29 OTHER CHRONIC PAIN 09/22/2017 WILMER MONTGOMERY, SHEELA R Ot M19.012 PRIMARY OSTEOARTHRITIS, LEFT SHOULDER 09/22/2017 WILMER MONTGOMERY, SHEELA R Ot M79.671 PAIN IN RIGHT FOOT 09/22/2017 VI BUSHINA R INFORMATION TECHNOLOGY ASSOCIATE Ot I67.82 CEREBRAL ISCHEMIA 09/22/2017 DIANN BUSH R INFORMATION TECHNOLOGY ASSOCIATE Ot R42 DIZZINESS AND GIDDINESS 09/22/2017 ELEAZAR DIANN R INFORMATION TECHNOLOGY ASSOCIATE Ot R53.1 WEAKNESS 09/22/2017 ELEAZAR DIANN R INFORMATION TECHNOLOGY ASSOCIATE Ot R53.83 OTHER FATIGUE 09/22/2017 ELEAZAR DIANN R INFORMATION TECHNOLOGY ASSOCIATE Ot R06.83 SNORING 09/24/2017 ELEAZAR DIANN R INFORMATION TECHNOLOGY ASSOCIATE Ot G47.33 OBSTRUCTIVE SLEEP APNEA (ADULT) (PEDIATR 09/24/2017 ELEAZAR DIANN R INFORMATION TECHNOLOGY ASSOCIATE Ot R06.83 SNORING 09/29/2017 ELEAZAR DIANN R INFORMATION TECHNOLOGY ASSOCIATE Ot G47.33 OBSTRUCTIVE SLEEP APNEA (ADULT) (PEDIATR 09/29/2017 ELEAZAR DIANN R INFORMATION TECHNOLOGY ASSOCIATE Ot R06.83 SNORING 10/16/2017 DIANN BUSH INFORMATION TECHNOLOGY ASSOCIATE Ot Z08 ENCNTR FOR FOLLOW-UP EXAM AFTER TRTMT FO 10/16/2017 DIANN BUSH APRN Ot Z85.3 PERSONAL HISTORY OF MALIGNANT NEOPLASM O 11/05/2017 SHEELA GUILLEN MD R Ot Z12.31 ENCNTR SCREEN MAMMOGRAM FOR MALIGNANT NE 11/05/2017 SHEELA GUILLEN MD R Ot Z85.3 PERSONAL HISTORY OF MALIGNANT NEOPLASM O 11/05/2017 SHEELA GUILLEN MD R Ot E03.9 HYPOTHYROIDISM, UNSPECIFIED 11/05/2017 SHEELA GUILLEN MD R Ot E03.9 HYPOTHYROIDISM, UNSPECIFIED 11/05/2017 SHEELA GUILLEN MD R Ot G56.92 UNSPECIFIED MONONEUROPATHY OF LEFT UPPER 11/05/2017 SHEELA GUILLEN MD R Ot M54.2 CERVICALGIA 11/05/2017 SHEELA GUILLEN MD R Ot G89.29 OTHER CHRONIC PAIN 11/05/2017 SHEELA GUILLEN MD R Ot M19.012 PRIMARY OSTEOARTHRITIS, LEFT SHOULDER 11/05/2017 SHEELA GUILLEN MD R Ot M79.671 PAIN IN RIGHT FOOT 11/05/2017 DIANN BUSH INFORMATION TECHNOLOGY ASSOCIATE Ot I67.82 CEREBRAL ISCHEMIA 11/05/2017 DIANN BUSH INFORMATION TECHNOLOGY ASSOCIATE Ot R42 DIZZINESS AND GIDDINESS 11/05/2017 DIANN BUSH INFORMATION TECHNOLOGY ASSOCIATE Ot R53.1 WEAKNESS 11/05/2017 DIANN BUSH INFORMATION TECHNOLOGY ASSOCIATE Ot R53.83 OTHER FATIGUE 11/05/2017 DIANN BUSH APRN Ot Z08 ENCNTR FOR FOLLOW-UP EXAM AFTER TRTMT FO 11/05/2017 DIANN BUSH INFORMATION TECHNOLOGY ASSOCIATE Ot Z85.3 PERSONAL HISTORY OF MALIGNANT NEOPLASM O 11/06/2017 CONCEPCION GAONA Ot E78.5 HYPERLIPIDEMIA, UNSPECIFIED 11/06/2017 CONCEPCION GAONA Ot I25.10 ATHSCL HEART DISEASE OF [place] CORONARY 11/06/2017 CONCEPCION GAONA Ot I34.0 NONRHEUMATIC MITRAL (VALVE) INSUFFICIENC 11/06/2017 CONCEPCION GAONA Ot I49.3 VENTRICULAR PREMATURE DEPOLARIZATION 11/06/2017 CONCEPCION GAONA Ot R00.2 PALPITATIONS 11/11/2017 CHIP CANDELARIO, CONCEPCION K Ot E78.5 HYPERLIPIDEMIA, UNSPECIFIED 11/11/2017 CHIP CANDELARIO CONCEPCION K Ot I25.10 ATHSCL HEART DISEASE OF [place] CORONARY 11/11/2017 CHIP CANDELARIO CONCEPCION K Ot I34.0 NONRHEUMATIC MITRAL (VALVE) INSUFFICIENC 11/11/2017 CHIP CANDELARIO CONCEPCION K Ot I49.3 VENTRICULAR PREMATURE DEPOLARIZATION 11/11/2017 CHIP CANDELARIO, CONCEPCION K Ot R00.2 PALPITATIONS 11/25/2017 CHIP CANDELARIO CONCEPCION K Ot E78.5 HYPERLIPIDEMIA, UNSPECIFIED 11/25/2017 CHIP CANDELARIO CONCEPCION K Ot I25.10 ATHSCL HEART DISEASE OF [place] CORONARY 11/25/2017 CHIP CANDELARIO CONCEPCION K Ot [...] Z12.11 ENCOUNTER FOR SCREENING FOR MALIGNANT NE 12/02/2017 NIKKI FERNANDEZ DO Ot D12.2 BENIGN NEOPLASM OF ASCENDING COLON 12/02/2017 NIKKI FERNANDEZ DO Ot D12.5 BENIGN NEOPLASM OF SIGMOID COLON 12/02/2017 NIKKI FERNANDEZ DO Ot I10 ESSENTIAL (PRIMARY) HYPERTENSION 12/02/2017 NIKKI FERNANDEZ DO Ot I25.10 ATHSCL HEART DISEASE OF [place] CORONARY 12/02/2017 NIKKI FERNANDEZ DO D Ot J45.909 UNSPECIFIED ASTHMA, UNCOMPLICATED 12/02/2017 NIKKI FERNANDEZ DO Ot K57.30 DVRTCLOS OF LG INT W/O PERFORATION OR AB 12/02/2017 NIKKI FERNANDEZ DO Ot K63.5 POLYP OF COLON 12/02/2017 NIKKI FERNANDEZ DO D Ot K64.9 UNSPECIFIED HEMORRHOIDS 12/02/2017 NIKKI FERNANDEZ DO Ot Z12.11 ENCOUNTER FOR SCREENING FOR MALIGNANT NE 12/02/2017 NIKKI FERNANDEZ DO D Ot Z79.899 OTHER JAIL (CURRENT) DRUG THERAPY 12/04/2017 NIKKI FERNANDEZ DO Ot D12.2 BENIGN NEOPLASM OF ASCENDING COLON 12/04/2017 NIKKI FERNANDEZ DO Ot D12.5 BENIGN NEOPLASM OF SIGMOID COLON 12/04/2017 NIKKI FERNANDEZ DO D Ot I10 ESSENTIAL (PRIMARY) HYPERTENSION 12/04/2017 NIKKI FERNANDEZ DO Ot I25.10 ATHSCL HEART DISEASE OF [place] CORONARY 12/04/2017 NIKKI FERNANDEZ DO Ot J45.909 UNSPECIFIED ASTHMA, UNCOMPLICATED 12/04/2017 NIKKI FERNANDEZ DO Ot K57.30 DVRTCLOS OF LG INT W/O PERFORATION OR AB 12/04/2017 NIKKI FERNANDEZ DO Ot K64.9 UNSPECIFIED HEMORRHOIDS 12/04/2017 FERNANDEZ NIKKI LA Ot Z12.11 ENCOUNTER FOR SCREENING FOR MALIGNANT NE 12/04/2017 NIKKI FERNANDEZ DO Ot Z79.899 OTHER JAIL (CURRENT) DRUG THERAPY 12/25/2017 DIANN BUSH INFORMATION TECHNOLOGY ASSOCIATE Ot E03.9 HYPOTHYROIDISM, UNSPECIFIED 12/25/2017 DIANN BUSH R INFORMATION TECHNOLOGY ASSOCIATE Ot R53.83 OTHER FATIGUE 12/25/2017 DIANN BUSH R INFORMATION TECHNOLOGY ASSOCIATE Ot Z85.3 PERSONAL HISTORY OF MALIGNANT NEOPLASM O 01/13/2018 DIANN BUSH INFORMATION TECHNOLOGY ASSOCIATE Ot E03.9 HYPOTHYROIDISM, UNSPECIFIED 01/13/2018 DIANN BUSH R INFORMATION TECHNOLOGY ASSOCIATE Ot R53.83 OTHER FATIGUE 01/13/2018 DIANN BUSH R INFORMATION TECHNOLOGY ASSOCIATE Ot Z85.3 PERSONAL HISTORY OF MALIGNANT NEOPLASM O 01/23/2018 DIANN BUSH INFORMATION TECHNOLOGY ASSOCIATE Ot Z08 ENCNTR FOR FOLLOW-UP EXAM AFTER TRTMT FO 01/23/2018 ELEAZARDIANN R INFORMATION TECHNOLOGY ASSOCIATE Ot Z85.3 PERSONAL HISTORY OF MALIGNANT NEOPLASM O 05/22/2018 SHEELA GUILLEN MD R Ot V76.12 OTH SCREEN MAMMO-MALIGN NEOPLASM OF [place] 05/22/2018 SHEELA GUILLEN MD R Ot 729.5 PAIN IN LIMB 05/22/2018 SHEELA GUILLEN MD R Ot 959.7 LOWER LEG INJURY NOS 05/22/2018 SHEELA GUILLEN MD R Ot E000.8 OTHER EXTERNAL CAUSE STATUS 05/22/2018 SHEELA GUILLEN MD R Ot E849.[address] NEC 05/22/2018 SHEELA GUILLEN MD Ot E888.9 FALL NOS 07/26/2018 RONI CHANEY MD Ot E03.9 HYPOTHYROIDISM, UNSPECIFIED 07/26/2018 RONI CHANEY MD Ot E66.9 OBESITY, UNSPECIFIED 07/26/2018 RONI CHANEY MD Ot F41.9 ANXIETY DISORDER, UNSPECIFIED 07/26/2018 RONI CHANEY MD Ot I10 ESSENTIAL (PRIMARY) HYPERTENSION 07/26/2018 RONI CHANEY MD Ot I25.10 ATHSCL HEART DISEASE OF [place] CORONARY 07/26/2018 RONI CHANEY MD Ot I49.3 VENTRICULAR PREMATURE DEPOLARIZATION 07/26/2018 RONI CHANEY MD Ot I67.4 HYPERTENSIVE ENCEPHALOPATHY 07/26/2018 RONI CHANEY MD Ot J06.9 ACUTE UPPER RESPIRATORY INFECTION, UNSPE 07/26/2018 RONI CHANEY MD Ot M06.9 RHEUMATOID ARTHRITIS, UNSPECIFIED 07/26/2018 RONI CHANEY MD Ot M19.91 PRIMARY OSTEOARTHRITIS, UNSPECIFIED SITE 07/26/2018 RONI CHANEY MD Ot M79.7 FIBROMYALGIA 07/26/2018 RONI CHANEY MD Ot R07.9 CHEST PAIN, UNSPECIFIED 07/26/2018 RONI CHANEY MD Ot R09.02 HYPOXEMIA 07/26/2018 RONI CHANEY MD Ot R41.82 ALTERED MENTAL STATUS, UNSPECIFIED 07/26/2018 RONI CHANEY MD Ot R47.81 SLURRED SPEECH 07/26/2018 RONI CHANEY MD, Ot R50.9 FEVER, UNSPECIFIED 07/26/2018 RONI CHANEY MD Ot Z79.899 OTHER PIECE HAND (CURRENT) DRUG THERAPY 07/26/2018 RONI CHANEY MD Ot Z85.3 PERSONAL HISTORY OF MALIGNANT NEOPLASM O 07/26/2018 RONI CHANEY MD Ot Z85.828 PERSONAL HISTORY OF OTHER MALIGNANT NEOP 07/26/2018 RONI CHANEY MD Ot Z88.0 ALLERGY STATUS TO PENICILLIN 07/26/2018 RONI CHANEY MD Ot Z92.21 PERSONAL HISTORY OF ANTINEOPLASTIC CHEMO 07/31/2018 RONI CHANEY MD Ot E03.9 HYPOTHYROIDISM, UNSPECIFIED 07/31/2018 RONI CHANEY MD Ot E66.9 OBESITY, UNSPECIFIED 07/31/2018 RONI CHANEY MD Ot F41.9 ANXIETY DISORDER, UNSPECIFIED 07/31/2018 RONI CHANEY MD Ot I10 ESSENTIAL (PRIMARY) HYPERTENSION 07/31/2018 RONI CHANEY MD Ot I25.10 ATHSCL HEART DISEASE OF [place] CORONARY 07/31/2018 RONI CHANEY MD Ot I49.3 VENTRICULAR PREMATURE DEPOLARIZATION 07/31/2018 RONI CHANEY MD Ot I67.4 HYPERTENSIVE ENCEPHALOPATHY 07/31/2018 RONI CHANEY MD Ot J06.9 ACUTE UPPER RESPIRATORY INFECTION, UNSPE 07/31/2018 RONI CHANEY MD Ot M06.9 RHEUMATOID ARTHRITIS, UNSPECIFIED 07/31/2018 RONI CHANEY MD Ot M19.91 PRIMARY OSTEOARTHRITIS, UNSPECIFIED SITE 07/31/2018 RONI CHANEY MD Ot M79.7 FIBROMYALGIA 07/31/2018 RONI CHANEY MD Ot R07.9 CHEST PAIN, UNSPECIFIED 07/31/2018 RONI CHANEY MD Ot R09.02 HYPOXEMIA 07/31/2018 RONI CHANEY MD Ot R41.82 ALTERED MENTAL STATUS, UNSPECIFIED 07/31/2018 RONI CHANEY MD Ot R47.81 SLURRED SPEECH 07/31/2018 RONI CHANEY MD Ot R50.9 FEVER, UNSPECIFIED 07/31/2018 RONI CHANEY MD Ot Z79.899 OTHER JAIL (CURRENT) DRUG THERAPY 07/31/2018 RONI CHANEY MD Ot Z85.3 PERSONAL HISTORY OF MALIGNANT NEOPLASM O 07/31/2018 RONI CHANEY MD Ot Z85.828 PERSONAL HISTORY OF OTHER MALIGNANT NEOP 07/31/2018 RONI CHANEY MD Ot Z88.0 ALLERGY STATUS TO PENICILLIN 07/31/2018 RONI CHANEY MD Ot Z92.21 PERSONAL HISTORY OF ANTINEOPLASTIC CHEMO 12/01/2018 NIKKI FERNANDEZ DO Ot Z01.818 ENCOUNTER FOR OTHER PREPROCEDURAL EXAMIN 12/02/2018 NIKKI FERNANDEZ DO Ot Z01.818 ENCOUNTER FOR OTHER PREPROCEDURAL EXAMIN 12/02/2018 FERNANDEZNIKKI SEAMAN DO Ot Z01.818 ENCOUNTER FOR OTHER PREPROCEDURAL EXAMIN Procedures There is no data. Results Test [...] Serum or plasma aspartate aminotransferase measurement (enzymatic activity/volume) 17 U/L 5-34 Serum or plasma alanine aminotransferase measurement (enzymatic activity/volume) 22 U/L 0-55 Serum or plasma protein measurement (mass/volume) 7.3 g/dL 6.4-8.2 Serum or plasma albumin measurement (mass/volume) 4.4 g/dL 3.2-4.5 [id number] - 09/02/16 11:25 Screening antinuclear antibody (ULYSSES) assay by enzyme immunoassay Positive <1:80 Anaplasma phagocytophilum IgG ab [titer] in serum <1:80 Serum nuclear antibody pattern interpretation [employer] NR Complete blood count (CBC) with automated white [...] Automated erythrocyte mean corpuscular hemoglobin concentration measurement (mass/volume) 34 g/dL 32-36 Automated erythrocyte distribution width ratio 13.8 % 10.0- 14.5 Automated blood platelet count (count/volume) 295 10*3/uL [...] Blood monocytes automated count (number/volume) 0.8 10*3 0.0- 1.0 Automated eosinophil count 0.2 10*3/uL 0.0-0.3 Automated [...] measurement in platelet poor plasma (mass/volume) - 05/05/17 00:08 Fibrin D-dimer FEU measurement in platelet [...] Serum or plasma aspartate aminotransferase measurement (enzymatic activity/volume) 13 U/L 5-34 Serum or plasma alanine aminotransferase measurement (enzymatic activity/volume) 17 U/L 0-55 Serum or plasma protein measurement (mass/volume) 7.9 g/dL 6.4-8.2 Serum or plasma albumin measurement (mass/volume) 4.4 g/dL 3.2-4.5 Magnesium - 05/05/17 00:08 Magnesium 2.3 mg/dL 1.8-2.4 Serum or plasma troponin i.cardiac measurement (mass/volume) - 05/05/17 00:08 Serum or plasma troponin i.cardiac measurement (mass/volume) < ng/mL <0.30 Myoglobin, serum - 05/05/17 00:08 Myoglobin, serum 33.5 ng/mL 10.0-92.0 Lipase - 05/05/17 00:08 Lipase 21 U/L 8-78 THYROID STIMULATING HORMONE - 05/05/17 00:08 THYROID STIMULATING HORMONE 3.71 u[iU]/mL 0.35-4.94 Serum or plasma creatine kinase measurement (enzymatic activity/volume) - 05/05/17 06:11 Serum or plasma creatine kinase measurement (enzymatic activity/volume) 31 U/L 29-168 Serum or plasma troponin i.cardiac measurement (mass/volume) - 05/05/17 06:11 Serum or plasma troponin i.cardiac measurement (mass/volume) < ng/mL <0.30 Myoglobin, serum - 05/05/17 06:11 Myoglobin, serum 29.5 ng/mL 10.0-92.0 Lipid 1996 panel - 05/05/17 06:11 Serum or plasma triglyceride measurement (mass/volume) 165 mg/dL <150 Serum or plasma cholesterol measurement (mass/volume) 203 mg/dL < 200 Serum or plasma cholesterol in HDL measurement (mass/volume) 35 mg/dL 40-60 Cholesterol in LDL [mass/volume] in serum or plasma by direct assay 143 mg/dL 1-129 Serum or plasma cholesterol in VLDL measurement (mass/volume) 33 mg/dL 5-40 Hemoglobin A1c - 05/05/17 06:11 Hemoglobin A1c 6.1 % 4.5-6.2 Complete blood count (CBC) with automated white blood cell (WBC) differential - 12/24/17 10:13 Blood leukocytes automated count (number/volume) 5.7 10*3/uL 4.3-11.0 Blood erythrocytes automated count (number/volume) 4.51 10*6/uL 4.35-5.85 Venous blood hemoglobin measurement (mass/volume) 13.4 g/dL 11.5-16.0 Blood hematocrit (volume fraction) 40 % 35-52 Automated erythrocyte mean corpuscular volume 88 [foz_us] 80-99 Automated erythrocyte mean corpuscular hemoglobin (mass per erythrocyte) 30 pg 25-34 Automated erythrocyte mean corpuscular hemoglobin concentration measurement (mass/volume) 34 g/dL 32-36 Automated erythrocyte distribution width ratio 13.6 % 10.0- 14.5 Automated blood platelet count (count/volume) 290 10*3/uL 130-400 Automated blood platelet mean volume measurement 10.3 [foz_us] 7.4-10.4 Automated blood neutrophils/100 leukocytes 41 % 42-75 Automated blood lymphocytes/100 leukocytes 49 % 12-44 Blood monocytes/100 leukocytes 8 % 0-12 Automated blood eosinophils/100 leukocytes 2 % 0-10 Automated blood basophils/100 leukocytes 0 % 0-10 Blood neutrophils automated count (number/volume) 2.3 10*3 1.8-7.8 Blood lymphocytes automated count (number/volume) 2.8 10*3 1.0-4.0 Blood monocytes automated count (number/volume) 0.4 10*3 0.0- 1.0 Automated eosinophil count 0.1 10*3/uL 0.0-0.3 Automated blood basophil count (count/volume) 0.0 10*3/uL 0.0-0.1 THYROID STIMULATING HORMONE - 12/24/17 10:13 THYROID STIMULATING HORMONE 1.36 u[iU]/mL 0.35-4.94 Complete blood count (CBC) with automated white blood cell (WBC) differential - 07/24/18 21:35 Blood leukocytes automated count (number/volume) 11.7 10*3/uL 4.3-11.0 Blood erythrocytes automated count (number/volume) 4.83 10*6/uL 4.35-5.85 Venous blood hemoglobin measurement (mass/volume) 14.1 g/dL 11.5-16.0 Blood hematocrit (volume fraction) 42 % 35-52 Automated erythrocyte mean corpuscular volume 88 [foz_us] 80-99 Automated erythrocyte mean corpuscular hemoglobin (mass per erythrocyte) 29 pg 25-34 Automated erythrocyte mean corpuscular hemoglobin concentration measurement (mass/volume) 33 g/dL 32-36 Automated erythrocyte distribution width ratio 13.9 % 10.0- 14.5 Automated blood platelet count (count/volume) 273 10*3/uL 130-400 Automated blood platelet mean volume measurement 10.9 [foz_us] 7.4-10.4 Automated blood neutrophils/100 leukocytes 71 % 42-75 Automated blood lymphocytes/100 leukocytes 22 % 12-44 Blood monocytes/100 leukocytes 6 % 0-12 Automated blood eosinophils/100 leukocytes 1 % 0-10 Automated blood basophils/100 leukocytes 0 % 0-10 Blood neutrophils automated count (number/volume) 8.3 10*3 1.8-7.8 Blood lymphocytes automated count (number/volume) 2.5 10*3 1.0-4.0 Blood monocytes automated count (number/volume) 0.7 10*3 0.0- 1.0 Automated eosinophil count 0.1 10*3/uL 0.0-0.3 Automated blood basophil count (count/volume) 0.1 10*3/uL 0.0-0.1 Comprehensive metabolic panel - 07/24/18 21:35 Serum or plasma sodium measurement (moles/volume) 142 mmol/L 135-145 Serum or plasma potassium measurement (moles/volume) 4.1 mmol/L 3.6-5.0 Serum or plasma chloride measurement (moles/volume) 104 mmol/L 98-107 Carbon dioxide 26 mmol/L 21-32 Serum or plasma anion gap determination (moles/volume) 12 mmol/L 5-14 Serum or plasma urea nitrogen measurement (mass/volume) 15 mg/dL 7-18 Serum or plasma creatinine measurement (mass/volume) 1.02 mg/dL 0.60-1.30 Serum or plasma urea nitrogen/creatinine mass ratio 15 NRG Serum or plasma creatinine measurement with calculation of estimated glomerular filtration rate 54 NRG Serum or plasma glucose measurement (mass/volume) 138 mg/dL 70-105 Serum or plasma calcium measurement (mass/volume) 10.0 mg/dL 8.5-10.1 Serum or plasma total bilirubin measurement (mass/volume) 0.5 mg/dL 0.1-1.0 Serum or plasma alkaline phosphatase measurement (enzymatic activity/volume) 75 U/L 40-136 Serum or plasma aspartate aminotransferase measurement (enzymatic activity/volume) 13 U/L 5-34 Serum or plasma alanine aminotransferase measurement (enzymatic activity/volume) 15 U/L 0-55 Serum or plasma protein measurement (mass/volume) 7.6 g/dL 6.4-8.2 Serum or plasma albumin measurement (mass/volume) 4.5 g/dL 3.2-4.5 CALCIUM CORRECTED 9.6 mg/dL 8.5-10.1 Serum or plasma troponin i.cardiac measurement (mass/volume) - 07/24/18 21:35 Serum or plasma troponin i.cardiac measurement (mass/volume) < ng/mL <0.30 Methicillin resistant Staphylococcus aureus (MRSA) screening culture - 07/25/18 01:15 Methicillin resistant Staphylococcus aureus (MRSA) screening culture NEG NRG Complete blood count (CBC) with automated white blood cell (WBC) differential - 07/25/18 03:33 Blood leukocytes automated count (number/volume) 8.6 10*3/uL 4.3-11.0 Blood erythrocytes automated count (number/volume) 4.02 10*6/uL 4.35-5.85 Venous blood hemoglobin measurement (mass/volume) 12.5 g/dL 11.5-16.0 Blood hematocrit (volume fraction) 37 % 35-52 Automated erythrocyte mean corpuscular volume 91 [foz_us] 80-99 Automated erythrocyte mean corpuscular hemoglobin (mass per erythrocyte) 31 pg 25-34 Automated erythrocyte mean corpuscular hemoglobin concentration measurement (mass/volume) 34 g/dL 32-36 Automated erythrocyte distribution width ratio 14.3 % 10.0- 14.5 Automated blood platelet count (count/volume) 240 10*3/uL 130-400 Automated blood platelet mean volume measurement 11.1 [foz_us] 7.4-10.4 Automated blood neutrophils/100 leukocytes 62 % 42-75 Automated blood lymphocytes/100 leukocytes 33 % 12-44 Blood monocytes/100 leukocytes 5 % 0-12 Automated blood eosinophils/100 leukocytes 0 % 0-10 Automated blood basophils/100 leukocytes 0 % 0-10 Blood neutrophils automated count (number/volume) 5.3 10*3 1.8-7.8 Blood lymphocytes automated count (number/volume) 2.8 10*3 1.0-4.0 Blood monocytes automated count (number/volume) 0.4 10*3 0.0- 1.0 Automated eosinophil count 0.0 10*3/uL 0.0-0.3 Automated blood basophil count (count/volume) 0.0 10*3/uL 0.0-0.1 Whole blood basic metabolic panel - 07/25/18 03:33 Serum or plasma sodium measurement (moles/volume) 143 mmol/L 135-145 Serum or plasma potassium measurement (moles/volume) 4.4 mmol/L 3.6-5.0 Serum or plasma chloride measurement (moles/volume) 109 mmol/L 98-107 Carbon dioxide 23 mmol/L 21-32 Serum or plasma anion gap determination (moles/volume) 11 mmol/L 5-14 Serum or plasma urea nitrogen measurement (mass/volume) 15 mg/dL 7-18 Serum or plasma creatinine measurement (mass/volume) 0.81 mg/dL 0.60-1.30 Serum or plasma urea nitrogen/creatinine mass ratio 19 NRG Serum or plasma creatinine measurement with calculation of estimated glomerular filtration rate > NRG Serum or plasma glucose measurement (mass/volume) 112 mg/dL 70-105 Serum or plasma calcium measurement (mass/volume) 8.8 mg/dL 8.5-10.1 Serum or plasma phosphate measurement (mass/volume) - 07/25/18 03:33 Serum or plasma phosphate measurement (mass/volume) 3.7 mg/dL 2.3-4.7 Magnesium - 07/25/18 03:33 Magnesium 1.9 mg/dL 1.8-2.4 THYROID STIMULATING HORMONE - 07/25/18 03:33 THYROID STIMULATING HORMONE 1.42 u[iU]/mL 0.35-4.94 Complete blood count (CBC) with automated white blood cell (WBC) differential - 07/26/18 03:45 Blood leukocytes automated count (number/volume) 6.8 10*3/uL 4.3-11.0 Blood erythrocytes automated count (number/volume) 4.24 10*6/uL 4.35-5.85 Venous blood hemoglobin measurement (mass/volume) 12.6 g/dL 11.5-16.0 Blood hematocrit (volume fraction) 39 % 35-52 Automated erythrocyte mean corpuscular volume 91 [foz_us] 80-99 Automated erythrocyte mean corpuscular hemoglobin (mass per erythrocyte) 30 pg 25-34 Automated erythrocyte mean corpuscular hemoglobin concentration measurement (mass/volume) 33 g/dL 32-36 Automated erythrocyte distribution width ratio 14.3 % 10.0- 14.5 Automated blood platelet count (count/volume) 232 10*3/uL 130-400 Automated blood platelet mean volume measurement 11.2 [foz_us] 7.4-10.4 Automated blood neutrophils/100 leukocytes 31 % 42-75 Automated blood lymphocytes/100 leukocytes 59 % 12-44 Blood monocytes/100 leukocytes 8 % 0-12 Automated blood eosinophils/100 leukocytes 2 % 0-10 Automated blood basophils/100 leukocytes 0 % 0-10 Blood neutrophils automated count (number/volume) 2.1 10*3 1.8-7.8 Blood lymphocytes automated count (number/volume) 4.0 10*3 1.0-4.0 Blood monocytes automated count (number/volume) 0.5 10*3 0.0- 1.0 Automated eosinophil count 0.2 10*3/uL 0.0-0.3 Automated blood basophil count (count/volume) 0.0 10*3/uL 0.0-0.1 Whole blood basic metabolic panel - 07/26/18 03:45 Serum or plasma sodium measurement (moles/volume) 144 mmol/L 135-145 Serum or plasma potassium measurement (moles/volume) 4.1 mmol/L 3.6-5.0 Serum or plasma chloride measurement (moles/volume) 109 mmol/L 98-107 Carbon dioxide 24 mmol/L 21-32 Serum or plasma anion gap determination (moles/volume) 11 mmol/L 5-14 Serum or plasma urea nitrogen measurement (mass/volume) 18 mg/dL 7-18 Serum or plasma creatinine measurement (mass/volume) 0.78 mg/dL 0.60-1.30 Serum or plasma urea nitrogen/creatinine mass ratio 23 NRG Serum or plasma creatinine measurement with calculation of estimated glomerular filtration rate > NRG Serum or plasma glucose measurement (mass/volume) 99 mg/dL 70-105 Serum or plasma calcium measurement (mass/volume) 8.8 mg/dL 8.5-10.1 Serum or plasma phosphate measurement (mass/volume) - 07/26/18 03:45 Serum or plasma phosphate measurement (mass/volume) 3.4 mg/dL 2.3-4.7 Magnesium - 07/26/18 03:45 Magnesium 2.1 mg/dL 1.8-2.4 Streptococcus pyogenes antigen detection - 07/26/18 07:00 Streptococcus pyogenes antigen detection NEGATIVE NEGATIVE Influenza virus A and B antigen detection - 07/26/18 07:00 FLU RESULT NEGATIVE FOR INFLUENZA A AND B ANTIGENS BY IA NRG Bacterial throat culture - 07/26/18 07:00 Bacterial throat culture NBS NRG Encounters ACCT No. Visit Date/Time Discharge Status Pt. Type Provider Facility Loc./Unit Complaint [id number] 12/08/2018 09:25:00 12/08/2018 23:59:59 CLS Preadmit NIKKI FERNANDEZ DO [facility] ENDO HX POLYPS [id number] 12/01/2018 05:38:00 12/01/2018 10:16:00 DIS Outpatient NIKKI FERNANDEZ DO [facility] PREOP COLONOSCOPY [id number] 07/24/2018 21:03:00 07/26/2018 11:55:00 DIS Inpatient RONI CHANEY MD [facility] 4TH HEADACHE/VOMITING/HYPERTENSIVE ENCEPHALOPATHY [id number] 12/24/2017 09:58:00 12/24/2017 23:59:59 CLS Outpatient DIANN BUSH INFORMATION TECHNOLOGY ASSOCIATE [facility] LAB HYPOTHYROIDISM [id number] 12/02/2017 07:26:00 12/02/2017 10:26:00 DIS Outpatient NIKKI FERNANDEZ DO [facility] ENDO SCREENING [id number] 11/27/2017 11:00:00 11/27/2017 11:39:00 DIS Outpatient NIKKI FERNANDEZ DO [facility] PREOP COLONOSCOPY [id number] 11/05/2017 07:55:00 11/05/2017 23:59:59 CLS Outpatient CONCEPCION GAONA [facility] LAB I25.10,E78.2,I34.0,I49.3,R00.2 [id number] 10/15/2017 08:15:00 10/15/2017 23:59:59 CLS Outpatient DIANN BUSH INFORMATION TECHNOLOGY ASSOCIATE [facility] RAD HX OF BREAST CA [id number] 09/23/2017 20:36:00 09/24/2017 06:22:00 DIS Outpatient DIANN BUSH INFORMATION TECHNOLOGY ASSOCIATE [facility] SLEEP SNORING [id number] 06/11/2017 14:41:00 06/11/2017 23:59:59 CLS Preadmit DIANN BUSH INFORMATION TECHNOLOGY ASSOCIATE [facility] SLEEP SNORING [id number] 05/19/2017 14:50:00 05/19/2017 23:59:59 CLS Outpatient DIANN BUSH APRN [facility] RAD CEREBRAL ISCHEMIA I67.82 [id number] 05/05/2017 01:30:00 05/05/2017 17:50:00 DIS Outpatient MOOK HINTON MD [facility] CATH CHEST PAIN, MULTIFOCAL PVC [id number] 03/18/2017 16:36:00 03/18/2017 23:59:59 CLS Outpatient SHEELA GUILLEN MD [facility] RAD M79.671 [id number] 03/05/2017 00:08:00 03/05/2017 23:59:59 CLS Preadmit NIKUNJ LAMA [facility] REHAB CERVICAL STENOSIS [id number] 02/21/2017 10:00:00 03/04/2017 00:01:00 DIS Outpatient NIKUNJ LAMA [facility] REHAB CERVICAL STENOSIS [id number] 12/20/2016 11:32:00 12/20/2016 23:59:59 CLS Outpatient SHEELA GUILLEN MD [facility] RAD CHRONIC LT SHOULDER PAIN M25.512 [id number] 09/12/2016 07:42:00 09/12/2016 23:59:59 CLS Outpatient SHEELA GUILLEN MD [facility] RAD NECK AND SHOULDER PAIN [id number] 09/05/2016 08:06:00 09/05/2016 23:59:59 CLS Outpatient SHEELA GUILLEN MD [facility] RAD ACQUIRED HYPOTHYROIDISM [id number] 09/02/2016 10:23:00 09/02/2016 23:59:59 CLS Outpatient SHEELA GUILLEN MD [facility] LAB ACQUIRED HYPOTHYROIDISM [id number] 01/31/2016 11:08:00 01/31/2016 23:59:59 CLS Outpatient SHEELA GUILLEN MD [facility] RAD SCREENING [id number] 01/24/2015 13:35:00 01/24/2015 23:59:59 CLS Outpatient SHEELA GUILLEN MD [facility] RAD [id number] 03/24/2014 14:41:00 03/24/2014 23:59:59 CLS Outpatient SHEELA GUILLEN MD [facility] RAD [id number] 03/23/2014 14:32:00 03/23/2014 23:59:59 CLS Outpatient SHEELA GUILLEN MD [facility] RAD FALL [id number] 01/12/2014 15:28:00 01/12/2014 23:59:59 CLS Outpatient SHEELA GUILLEN MD [facility] RAD PAIN R FOOT [id number] 10/20/2013 09:45:00 10/20/2013 23:59:59 CLS Outpatient SHEELA GUILLEN MD [facility] RAD SCREENING [id number] 12/12/2011 13:35:00 Document Registration [id number] 10/10/2010 14:12:00 Document Registration [id number] 03/30/2010 10:00:00 Document Registration [id number] 12/19/2009 10:29:00 Document Registration [id number] 12/12/2009 09:08:00 Document Registration
[2018-12-29 10:10] VITALS: BP 129/65
[2018-12-29] MEDS ORDERED: LACTATED RINGERS 1,000 ML IV ONE (10:10)
[2018-12-29] MEDS ORDERED: LACTATED RINGERS 1,000 ML IV PRN (10:30)
[2018-12-29] MEDS ORDERED: PROPOFOL INJECTION 50 ML IV ONE (13:41)
[2018-12-29] MEDS ORDERED: MIDAZOLAM 2 MG/2 ML (VERSED) VIAL ONE (13:42)
--- NOTE | 2018-12-29 14:21 | Progress Note-Post Operative ---
Post-Operative Progess Note Surgeon (s)/[employer] Hanger (s) Surgeon NIKKI FERNANDEZ DO [employer]: na Pre-Operative Diagnosis history of polyps Post-Operative Diagnosis rectal polyp Procedure & Operative Findings Date of Procedure 12/29/18 Procedure Performed/Findings colonoscopy with hot bx polypectomy Anesthesia Type per software tools developer Estimated Blood Loss Estimated blood loss (mL): none Specimens/Packing Specimens Removed rectal polyp NIKKI FERNANDEZ DO Dec 29, 2018 14:21
--- NOTE | 2018-12-29 14:24 | Discharge Inst-Simple/Standard ---
Discharge Inst-Standard Patient Instructions/Follow Up Plan of Care/Instructions/FU: 2 weeks Dominique Activity as Tolerated: Yes Discharge Diet: Regular Diet NIKKI FERNANDEZ DO Dec 29, 2018 14:24
--- NOTE | 2018-12-29 14:29 | Anesthesia-General Post-Op ---
MAC Patient Condition Mental Status/LOC: Same as Preop Cardiovascular: Satisfactory Nausea/Vomiting: Absent Respiratory: Satisfactory Pain: Controlled Complications: Absent Post Op Complications Complications None Follow Up Care/Instructions Patient Instructions None needed. Anesthesiology Discharge Order Discharge Order Patient is doing well, no complaints, stable vital signs, no apparent adverse anesthesia problems. No complications reported per nursing. OMAR LIZ CRNA Dec 29, 2018 14:29
[2018-12-29 14:45] VITALS: BP 127/58
[2018-12-29 15:15] VITALS: BP 139/57
[2018-12-29 15:30] VITALS: BP 139/57
--- NOTE | 2018-12-29 20:07 | OPERATIVE REPORT ---
DATE OF SERVICE: 12/29/2018 PREOPERATIVE DIAGNOSIS: History of colon polyps. POSTOPERATIVE DIAGNOSIS: Rectal polyp. PROCEDURE: Colonoscopy with hot biopsy polypectomy. SURGEON: Nikki Fox DO ANESTHESIA: Per CARBURETOR MECHANIC. ESTIMATED BLOOD LOSS: None. COMPLICATIONS: None. INDICATIONS: The patient is a 68-year-old female with history of colon polyps. She understands risks and benefits of procedure and wished to proceed with procedure. Consent was signed and on the chart. DESCRIPTION OF PROCEDURE: The patient was taken to the endoscopy suite, placed in left lower recumbent position. Timeout was performed. Digital rectal exam was performed. There were no palpable polyps, masses or ulcerations. Scope was inserted into the rectum and advanced all the way to the cecum with minimal difficulty. Prep was adequate. Scope was then slowly retracted back. There were no polyps, masses or ulcerations within the cecum, ascending, transverse, descending and sigmoid colon. Once in the rectum, a very small polyp was present, which hot biopsy polypectomy was performed. Scope was retroflexed noting no other pathology. Scope was returned to its normal position, slowly withdrawn until completely removed. The patient tolerated the procedure well without any complications. She was taken to recovery room in stable condition. RECOMMENDATIONS: The patient will follow up in the office in 2 weeks to discuss pathology results. We will see how she is doing at that time. The patient to have a repeat colonoscopy in 5 years, any issues before that will be seen at that time. Job ID: [id number] DocumentID: [id number] Dictated Date: 12/29/2018 14:26:00 Automation Test Engineer Date: 12/29/2018 20:06:07 Dictated By: NIKKI FOX DO
== END 2018-12-29 15:30 | disposition home or self-care (01) ==
LOC: ENDO 09:54
PROVIDERS: ATTEND Surgery
DX: Z09 Encounter for follow-up examination after completed treatment for conditions other than malignant neoplasm (principal); D12.8 Benign neoplasm of rectum; Z86.010 Personal history of colon polyps; I25.10 Atherosclerotic heart disease of native coronary artery without angina pectoris; I10 Essential (primary) hypertension; I08.1 Rheumatic disorders of both mitral and tricuspid valves; E78.5 Hyperlipidemia, unspecified; E03.9 Hypothyroidism, unspecified; Z85.3 Personal history of malignant neoplasm of breast; Z86.73 Personal history of transient ischemic attack (TIA), and cerebral infarction without residual deficits; Z79.899 Other long term (current) drug therapy

== ENCOUNTER → 2019-01-25 | Outpatient (CLI) | payer MEDICARE, OTHER ==
[2019-01-25 10:22] LABS: ALANINE AMINOTRANSFERASE 15 U/L (0-55); ALBUMIN 4.3 GM/DL (3.2-4.5); ALKALINE PHOSPHATASE 73 U/L (40-136); BILIRUBIN,TOTAL 0.5 MG/DL (0.1-1.0); BUN/CREATININE RATIO 23; CALCIUM 9.9 MG/DL (8.5-10.1); CARBON DIOXIDE 25 MMOL/L (21-32); CHLORIDE 107 MMOL/L (98-107); CHOLESTEROL 159 MG/DL (< 200); CREATININE SERUM 0.86 MG/DL (0.60-1.30); GFR ESTIMATED > 60; GLUCOSE 101 MG/DL (70-105); HDL CHOLESTEROL 38 MG/DL (40-60); POTASSIUM 4.3 MMOL/L (3.6-5.0); SODIUM 141 MMOL/L (135-145); TOTAL PROTEIN 7.1 GM/DL (6.4-8.2); TRIGLYCERIDES 198 MG/DL (<150); VLDL CHOLESTEROL 40 MG/DL (5-40)
== END ==
LOC: LAB 09:48
PROVIDERS: ATTEND Physician Assistant
DX: E78.5 Hyperlipidemia, unspecified (principal); I25.10 Atherosclerotic heart disease of native coronary artery without angina pectoris
CPT/HCPCS: 36415; 80053; 80061

== ENCOUNTER → 2019-02-01 | Outpatient (CLI) | payer MEDICARE, OTHER | LOC: LAB 09:50 | PROVIDERS: ATTEND Family Medicine | DX: E03.9 Hypothyroidism, unspecified (principal) | CPT/HCPCS: 36415; 84443 ==

== ENCOUNTER → 2019-02-18 | Outpatient (CLI) | payer MEDICARE, OTHER ==
--- NOTE | 2019-02-18 20:50 | Diagnostic Imaging Report ---
INDICATION: History of breast cancer. The current study was also evaluated with a Computer Aided Detection (CAD) system. 3-D Tomographic imaging was also performed. Comparison made with prior examination from 10/15/2017, 01/31/2016, and 01/24/2015. FINDINGS: There are scattered fibroglandular densities in the right breast. There are few benign-type calcifications. There is no dominant mass, spiculated lesion, or suspicious calcification identified. The skin, nipple, and axilla are unremarkable. IMPRESSION: Benign. ACR BI-RADS Category 2: Benign findings. Result letter will be mailed to the patient. Note: At least 10% of breast cancer is not imaged by mammography. Dictated by: Dictated on workstation # [id number]
== END ==
LOC: RAD 12:44
PROVIDERS: ATTEND Family Medicine
DX: Z85.3 Personal history of malignant neoplasm of breast (principal)

== ENCOUNTER → 2019-04-21 | Outpatient (CLI) | payer MEDICARE, OTHER ==
[~2019-04-21] MED LIST changes: +RT-ALBUTEROL SULF 2.5 MG/3 ML PRE-MIX VIAL INH ONE
== END ==
LOC: RT 10:19
PROVIDERS: ATTEND Physician Assistant
DX: I25.10 Atherosclerotic heart disease of native coronary artery without angina pectoris (principal); E78.5 Hyperlipidemia, unspecified
CPT/HCPCS: 94060; 94726; 94729

== ENCOUNTER → 2020-03-07 | Outpatient (CLI) | payer MEDICARE, OTHER ==
[~2020-03-07] MED LIST changes: -METO-387 PO; +MTP25TSR PO; -RT-ALBUTEROL SULF 2.5 MG/3 ML PRE-MIX VIAL INH ONE
--- NOTE | 2020-03-07 12:43 | Diagnostic Imaging Report ---
INDICATION: Routine screening. COMPARISON: 02/18/2019 and 10/15/2017. TECHNIQUE: Unilateral right 2D and 3D screening mammography was performed with CAD. FINDINGS: The right breast remains heterogeneously dense, limiting the sensitivity of mammography. The parenchymal pattern appears stable. No dominant mass or malignant appearing microcalcifications are seen. There are benign calcifications. The right axilla is unremarkable. IMPRESSION: No mammographic features suspicious for malignancy are identified. ACR BI-RADS Category 2: Benign findings. Result letter will be mailed to the patient. Note: At least 10% of breast cancer is not imaged by mammography. Dictated by: Dictated on workstation # [id number]
== END ==
LOC: RAD 10:54
PROVIDERS: ATTEND Family Medicine
DX: Z12.31 Encounter for screening mammogram for malignant neoplasm of breast (principal)
CPT/HCPCS: 77063

== ENCOUNTER → 2020-04-25 | Outpatient (CLI) | payer MEDICARE, OTHER | LOC: CARD 16:05 | PROVIDERS: ATTEND Internal Medicine Cardiovascular Disease | DX: I08.1 Rheumatic disorders of both mitral and tricuspid valves (principal); E78.5 Hyperlipidemia, unspecified | CPT/HCPCS: 93225; 93226 ==

== ENCOUNTER 2020-07-07 10:06 | Outpatient (RCR) | payer MEDICARE, OTHER ==
[~2020-07-07 10:06] MED LIST changes: -LISI-552 PO; +LISI20TA26 PO
== END 2020-10-05 ==
LOC: CARD 10:06
PROVIDERS: ATTEND Internal Medicine Cardiovascular Disease
DX: R00.2 Palpitations (principal)

== ENCOUNTER → 2020-08-03 | Outpatient (CLI) | payer MEDICARE, OTHER ==
[~2020-08-03] MED LIST changes: +LISI-552 PO; -LISI20TA26 PO
== END ==
LOC: CARD 11:23
PROVIDERS: ATTEND Physician Assistant
DX: I34.0 Nonrheumatic mitral (valve) insufficiency (principal); I51.7 Cardiomegaly; I25.10 Atherosclerotic heart disease of native coronary artery without angina pectoris
CPT/HCPCS: 93306

== ENCOUNTER 2021-01-17 11:15 | Day surgery (SDC) | payer MEDICARE, OTHER ==
[2021-01-17] VITALS (12 sets, daily range): BP systolic 103–198; BP diastolic 51–111
[~2021-01-17] VITALS: Ht 167 cm; Wt 88.0 kg
[~2021-01-17 11:15] MED LIST changes: +CATHETER FLUSH 10 ML SYR IV PRN; -LISI-552 PO; +LISI20TA26 PO
[2021-01-17] MEDS ORDERED: NS IV 1000 ML 1,000 ML IV SCH ×2 (11:45→12:30)
[2021-01-17] MEDS ORDERED: NS IV 1000 ML 1,000 ML ONE (11:47)
[2021-01-17] MEDS ORDERED: LIDOCAINE 1% INJ 20 ML 20 ML VIAL ONE (11:47)
[2021-01-17] MEDS ORDERED: HEParin (CATH LAB) 2,000 ML IV ONE (11:47)
[2021-01-17 11:49] LABS: HEMATOCRIT 40 % (35-52); MEAN CORPUSCULAR HEMOGLOBIN 33 pg (25-34); MEAN CORPUSCULAR HGB CONC 35 g/dL (32-36); MEAN CORPUSCULAR VOLUME 94 fL (80-99); MEAN PLATELET VOLUME 11.1 fL (9.0-12.2); PLATELET COUNT 243 10^3/uL (130-400); WHITE BLOOD COUNT 7.8 10^3/uL (4.3-11.0)
--- NOTE | 2021-01-17 11:56 | Conscious Sedation/ASA ---
Conscious Sedation Pre-Proced Time 11:56 ASA Score 3 For ASA 3 and 4: Consider anesthesia and medical clearance. Also, for patients with a history of failed moderate sedation consider anesthesia. Airway Lungs Heart ASA score ASA 1: a normal healthy patient ASA 2: a patient with a mild systemic disease (mid diabetes, controlled hypertension, obesity x ASA 3: a patient with a severe systemic disease that limits activity (angina, COPD, prior Myocardial infarction) ASA 4: a patient with an incapacitating disease that is a constant threat to life (CHF, renal failure) ASA 5: a moribund patient not expected to survive 24 hrs. (ruptured aneurysm) ASA 6: a declared brain- patient whose organs are being harvested. For emergent operations, add the letter E after the classification Mallampati Classification Grade 3 Sedation Plan Analgesia, Amnesia, Plan communicated to team members, Discussed options with patient/fam, Discussed risks with patient/fam The patient is an appropriate candidate to undergo the planned procedure, sedation, and anesthesia. The patient immediately re-assessed prior to indication. BERNABE RAMIREZ MD Jan 17, 2021 11:56
[2021-01-17] MEDS ORDERED: CHOL500044 PO (11:57)
[2021-01-17] MEDS ORDERED: LISI20TA26 PO (11:57)
[2021-01-17] MEDS ORDERED: fentaNYL INJ 100 MCG/2 ML AMP ONE (11:57)
[2021-01-17] MEDS ORDERED: MIDAZOLAM 5 MG/5 ML (VERSED) VIAL ONE (11:57)
[2021-01-17] MEDS ORDERED: METO50TA7 PO (11:57)
[2021-01-17] MEDS ORDERED: HEParin 1000 UNIT/ML (10ML VIAL) FOR BOLUS ONE (11:58)
[2021-01-17] MEDS ORDERED: VERAPAMIL 5 MG/2 ML (CALAN) VIAL IV ONE (11:58)
[2021-01-17] MEDS ORDERED: NITRO DRIP 25000 MCG/D5W 250 ML IV ONE (12:00)
[2021-01-17 12:09] LABS: PROTHROMBIN TIME PATIENT 13.6 SEC (12.2-14.7)
[2021-01-17 12:11] LABS: ALANINE AMINOTRANSFERASE 17 U/L (0-55); ALBUMIN 4.3 GM/DL (3.2-4.5); ALKALINE PHOSPHATASE 87 U/L (40-136); BILIRUBIN,TOTAL 0.6 MG/DL (0.1-1.0); BUN/CREATININE RATIO 20; CALCIUM 9.7 MG/DL (8.5-10.1); CARBON DIOXIDE 26 MMOL/L (21-32); CHLORIDE 105 MMOL/L (98-107); CHOLESTEROL 158 MG/DL (< 200); CREATININE SERUM 0.84 MG/DL (0.60-1.30); GFR ESTIMATED > 60; GLUCOSE 102 MG/DL (70-105); HDL CHOLESTEROL 45 MG/DL (40-60); POTASSIUM 3.7 MMOL/L (3.6-5.0); SODIUM 141 MMOL/L (135-145); TOTAL PROTEIN 7.5 GM/DL (6.4-8.2); TRIGLYCERIDES 155 MG/DL (<150); VLDL CHOLESTEROL 31 MG/DL (5-40)
--- NOTE | 2021-01-17 12:29 | Discharge Inst-Post CATH ---
Discharge Inst-CATH/EP Problems Reviewed?: Yes Post Cardiac Cath/EP D/C Inst Follow Up/Plan Appointment with Dr Rubalcava in 2-4 weeks <b>CARDIAC CATH/EP PROCEDURE DISCHARGE INSTRUCTIONS</b> ACTIVITY * Go Home directly and rest. * Limit activity of the leg (or wrist if it was used) for 7 days including aerobics, swimming, jogging, bicycling, etc. * Restrict stair-climbing for 7 days if possible, if not, climb up with your non-cath leg, then bring together on the same step. * Avoid lifting, pushing, pulling or excessive movement of the affected extremity for 7 days. * Customary sexual activity may be resumed after 2 days-use caution not to use a position that strains or causes pain to the affected extremity. * No driving for 24 hours. * NO SMOKING. * Avoid straining for bowel movements for 7 days. * Gentle walking on level ground is allowed. * Returning to work will depend on the type of procedure and the results. Your doctor will discuss this with you. CALL YOUR DOCTOR FOR ANY OF THE FOLLOWING: *If bleeding from the puncture site occurs- Apply gentle pressure to site with clean cloth and call your doctor or EMS. * If a knot or lump forms under the skin, increases in size, or causes pain. * If bruising appears to be worsening or moving further down your leg instead of disappearing. * Temperature above 101 F. CARE OF YOUR GROIN INCISION; * Bruising or purple discoloration of the skin near the puncture site is common. * You may shower only, no bathtub bathing for 5 days. Be careful to avoid slipping as your leg may feel stiff. * If a closure device was used on your femoral artery, please see the attached guide regarding care of the device and your leg. * Leave dressing on FOR 24 hours. CARE OF YOUR WRIST INCISION; * Bruising or purple discoloration of the skin near the puncture site is common. * You may shower. * DO NOT submerge wrist. * Leave dressing on FOR 24 hours. BERNABE RUBALCAVA MD Jan 17, 2021 12:29 pm
--- NOTE | 2021-01-17 12:55 | Diagnostic Imaging Report ---
History: Abnormal stress test. Pre-heart catheter with possible stenting. COMPARISON: 07/26/2018 TECHNIQUE: Frontal view the chest FINDINGS: Lung volumes are normal. No focal consolidation is seen. There is no pleural effusion or pneumothorax. The cardiac silhouette is normal in size. IMPRESSION: 1. No acute pulmonary abnormality is seen. Dictated by: Dictated on workstation # [id number]
--- NOTE | 2021-01-17 13:16 | Cardiac Cath Report ---
Cardiac Cath Report Physician (s)/Pharmacy Customer Care Specialist (s) Physician BERNABE RAMIREZ MD Pre-Procedure Diagnosis Pre-Procedure Diagnosis: Coronary artery disease Post-Procedure Note Procedure Start Date: Jan 17, 2021 Name of Procedure: Left heart catheterization Aortic arch angiogram Findings/Procedure Note PROCEDURE NOTE: 70 years old lady with generalized fatigue, loss of energy, post Covid 19 infection, underwent stress test today, she was noted to have frequent PVCs, ventricular bigeminy and ventricular couplets, had an abnormal SPECT images with mid to apical inferior wall and inferolateral ischemia, we discussed the management plan recommended cardiac catheterization, patient was very anxious and concerned, requested to proceed with the procedure today. After explaining the procedure to the patient, all pros and cons were explained, all questions were answered. The patient signed the consent and then she was placed on the cardiac catheterization laboratory. Groin was prepped SL fashion local anesthesia was used. Sheath placed in the right radial artery, [place] catheter was advanced to the left ventricular cavity, pressure was measured, LV to aorta pullback was measured, intubated the left coronary system and angiogram was done then catheter was removed and Kristin right catheter was advanced, angiogram to the right coronary system was done. Patient was reportedly had significant calcification in the thoracic aorta and she was concerned about the heavy calcification that was reported by her ropewalk rope maker, during the procedure there was no significant calcification noted, angiogram of the aortic arch was done showing normal arch, no dissection or aneurysm. Normal origin of the brachiocephalic artery, left carotid and left subclavian artery At the end of the procedure the sheath was removed. Vascular band deployed FINDINGS: Hemodynamics LV 124/15, end-diastolic pressure 15 Aorta 111/59 mean of 66 ANATOMY: Left Main is free of obstructive disease Left Anterior Descending has mild disease at the midportion, mild irregularity nonobstructive disease Left Circumflex has mild disease nonobstructive disease Right Coronary Artery is dominant artery with no obstructive disease LV Gram was not done, pressure was measured Aortic arch angiogram showed normal aortic arch with no dissection or aneurysm, normal great vessels of the neck CONCLUSION: 1. Slightly tortuous coronary system with mild disease in the LAD nonobstructive disease 2. Normal left ventricular end-diastolic pressure. 3. Normal aortic arch and great vessels of the neck DISCUSSION AND RECOMMENDATION: Medical therapy is recommended, continue to increase beta-blockers and attempt to control frequent ventricular premature contractions Anesthesia Type: Conscious Sedation Estimated blood loss (mL): 10 ml Contrast Amount: 32 ml Total Radiation Dose: 256 mGy Post-Procedure Diagnosis Post-operative diagnosis: Coronary artery disease Chest pain Frequent PVCs Hypertension BERNABE RAMIREZ MD Jan 17, 2021 1:16 pm
--- NOTE | 2021-01-17 17:11 | STRESS TEST ---
DATE OF SERVICE: 01/17/2021 EXERCISE MYOVIEW STRESS TEST REPORT REFERRING PHYSICIAN: Dr. Kerrie Carias. Baseline heart rate is 88, baseline blood pressure 103/72. Baseline EKG is sinus rhythm with frequent PVCs and ventricular bigeminy. In summary, the patient was injected with 10.47 mCi of technetium-99 Myoview and the resting images were obtained. Then, the patient started exercising with a baseline heart rate, blood pressure and EKG mentioned above. EKG showed frequent PVCs, ventricular bigeminy and ventricular couplet throughout the test. No acute ischemic changes. During recovery, heart rate and blood pressure returned to baseline. Peak blood pressure was 210/99. Review of her SPECT images showed breast attenuation with decreased uptake involving the inferior wall and inferoapical segment with mild reversibility. Stress score is 6, SDS 5, TID value 1.18. On the gated images, there is diffuse left ventricular hypokinesia with EF 42%. CONCLUSION: 1. Poor exercise tolerance for a total of 2 minutes 5 seconds on standard Jose protocol, total of 3.4 METS achieving 90% of maximum expected heart rate. 2. Baseline ventricular bigeminy with frequent PVCs persisted during test with ventricular bigeminy and ventricular couplets. 3. Nondiagnostic EKG changes with exercise returned to baseline during recovery. 4. Severe hypertensive response to exercise with peak blood pressure 210/99, returned to baseline during recovery. 5. Breast attenuation, mild ischemia involving the mid to apical inferior wall and inferolateral wall. 6. Normal left ventricular size, diffuse hypokinesia, EF 42%. Job ID: [id number] DocumentID: [id number] Dictated Date: 01/17/2021 15:42:26 Engine Manager Date: 01/17/2021 17:10:09 Dictated By: BERNABE RAMIREZ MD
== END 2021-01-17 15:37 | disposition home or self-care (01) ==
LOC: CATH 11:15 → SDC 12:44 → CATH 15:37
PROVIDERS: ATTEND Internal Medicine Cardiovascular Disease
DX: I25.10 Atherosclerotic heart disease of native coronary artery without angina pectoris (principal); I77.1 Stricture of artery; I49.3 Ventricular premature depolarization; I10 Essential (primary) hypertension; I34.0 Nonrheumatic mitral (valve) insufficiency; I65.23 Occlusion and stenosis of bilateral carotid arteries; M19.90 Unspecified osteoarthritis, unspecified site; E78.5 Hyperlipidemia, unspecified; E03.9 Hypothyroidism, unspecified; Z79.890 Hormone replacement therapy; Z79.899 Other long term (current) drug therapy; Z86.16 Personal history of COVID-19
CPT/HCPCS: 36221; 71045; 78452; 80053; 80061; 85027; 85610; 85730; 87081; 93005; 93017; 93458; A9502; C1894; 36415

== ENCOUNTER → 2021-04-20 | Outpatient (CLI) | payer MEDICARE, OTHER ==
[~2021-04-20] MED LIST changes: -CATHETER FLUSH 10 ML SYR IV PRN; +CHOL500044 PO; +METO50TA7 PO
--- NOTE | 2021-04-20 19:09 | Diagnostic Imaging Report ---
PROCEDURE: US Thyroid. TECHNIQUE: Multiple real-time grayscale images were obtained of the thyroid in various projections. INDICATION: Thyroid cyst, thyroid nodule. COMPARISON: 10/10/2010. FINDINGS: The right lobe of the thyroid gland measures 4.1 x 1.4 x 1.3 cm. A round 0.4 cm hypoechoic nodule with internal vascularity is present within the mid aspect of the right thyroid lobe. This has not significantly changed since the prior examination in 2010. No new right thyroid nodules. The left lobe of the thyroid gland measures 3.9 x 1.3 x 1.4 cm. It maintains a homogeneous echotexture without discrete nodule. The isthmus is unremarkable. IMPRESSION: 1. Essentially stable 0.4 cm solid nodule within the mid right thyroid lobe. Given stability since 2010 and morphology, this is felt to be benign. 2. Otherwise, unremarkable examination. No new thyroid nodule. Dictated by: Dictated on workstation # [id number]
--- NOTE | 2021-04-23 09:04 | Diagnostic Imaging Report ---
Indication: Routine screening. Comparison is made prior mammogram from 03/07/2020 and 02/18/2019. 2-D and 3-D unilateral right screening mammography was performed with CAD. Right breast is heterogeneously dense, limiting the sensitivity of mammography. No dominant mass or malignant-appearing microcalcifications are seen. Right axilla is unremarkable. IMPRESSION: BI-RADS Category 1 No mammographic features suspicious for malignancy are identified. ACR BI-RADS Category 1: Negative. Result letter will be mailed to the patient. Note: At least 10% of breast cancer is not imaged by mammography. Dictated by: Dictated on workstation # [id number]
== END ==
LOC: RAD 14:30
PROVIDERS: ATTEND Family Medicine
DX: Z12.31 Encounter for screening mammogram for malignant neoplasm of breast (principal); E04.1 Nontoxic single thyroid nodule
CPT/HCPCS: 76536; 77063

== ENCOUNTER → 2021-06-13 | Outpatient (CLI) | payer MEDICARE, OTHER | LOC: CARD 11:07 | PROVIDERS: ATTEND Internal Medicine Clinical Cardiac Electrophysiology | DX: R00.2 Palpitations (principal) | CPT/HCPCS: 93225; 93226 ==

== ENCOUNTER → 2022-01-09 | Outpatient (CLI) | payer MEDICARE, OTHER ==
[2022-01-09 16:37] LABS: POTASSIUM 3.9 MMOL/L (3.6-5.0)
[2022-01-09 16:38] LABS: ALBUMIN 4.1 GM/DL (3.2-4.5)
[2022-01-09 16:39] LABS: CALCIUM 9.4 MG/DL (8.5-10.1)
[2022-01-09 16:42] LABS: BILIRUBIN,TOTAL 0.6 MG/DL (0.1-1.0)
[2022-01-09 16:44] LABS: CREATININE SERUM 0.8 MG/DL (0.60-1.30)
== END ==
LOC: LAB 15:54
PROVIDERS: ATTEND Internal Medicine Cardiovascular Disease
DX: I25.10 Atherosclerotic heart disease of native coronary artery without angina pectoris (principal); E78.5 Hyperlipidemia, unspecified; I11.9 Hypertensive heart disease without heart failure; E78.2 Mixed hyperlipidemia
CPT/HCPCS: 36415; 80053; 80061

== ENCOUNTER → 2022-01-09 | Outpatient (CLI) | payer MEDICARE, OTHER ==
--- NOTE | 2022-01-09 16:00 | Diagnostic Imaging Report ---
Indication: Left flank pain. Comparison: None Findings: 2 views of the abdomen demonstrate a nondistended bowel gas pattern. There is no significant constipation. There is no large pattern of free air. Osseous structures normal. Impression: Negative KUB Dictated by: Dictated on workstation # [id number]
--- NOTE | 2022-01-09 16:16 | Diagnostic Imaging Report ---
PROCEDURE: CT abdomen and pelvis without contrast. TECHNIQUE: Multiple contiguous axial images were obtained through the abdomen and pelvis without the use of intravenous contrast. Auto Exposure Controls were utilized during the CT exam to meet ALARA standards for radiation dose reduction. INDICATION: Left flank pain. COMPARISON: None. FINDINGS: The lung bases are clear. There is a benign-appearing cyst in the mid aspect of the right kidney. There is no hydronephrosis or renal calculi. The gallbladder is surgically absent. There is a small hiatal hernia. Additional solid organs, vascular structures, and bowel are normal. There is no free air, free fluid, or inflammation. The uterus is surgically absent. The urinary bladder is normal. The appendix is normal. Osseous structures are age appropriate. IMPRESSION: 1. Likely right renal cyst. Consider nonemergent postcontrast imaging to assure complete benignity. 2. No renal calculi or hydronephrosis. 3. Surgically absent gallbladder and uterus. 4. No inflammatory process or bowel obstruction identified. 5. Not mentioned above, prominent scattered left retroperitoneal lymph nodes and a few iliac nodes. Recommend follow-up in 4-6 weeks with postcontrast imaging to assure stability. Dictated by: Dictated on workstation # [id number]
== END ==
LOC: RAD 15:17
PROVIDERS: ATTEND Urology
DX: R10.9 Unspecified abdominal pain (principal); M54.9 Dorsalgia, unspecified; Z90.49 Acquired absence of other specified parts of digestive tract; Z90.710 Acquired absence of both cervix and uterus
CPT/HCPCS: 74018; 74176

== ENCOUNTER → 2022-02-11 | Outpatient (CLI) | payer MEDICARE, OTHER ==
[~2022-02-11] MED LIST changes: +CATHETER FLUSH 10 ML SYR IV PRN; +IOHEXOL 350 MG/ML 100 ML (OMNIPAQUE 350) VIAL IV ONE; +NS 100 ML (IVPB) BAG IV ONE
[2022-02-11 09:55] LABS: CALCIUM 9.4 MG/DL (8.5-10.1); CREATININE SERUM 0.88 MG/DL (0.60-1.30); POTASSIUM 4.3 MMOL/L (3.6-5.0)
--- NOTE | 2022-02-11 11:22 | Diagnostic Imaging Report ---
PROCEDURE: CT abdomen and pelvis with and without contrast. TECHNIQUE: Precontrast acquisitions were acquired through the abdomen and pelvis. Multiple contiguous axial images were obtained through the abdomen and pelvis after the administration of intravenous contrast. Auto Exposure Controls were utilized during the CT exam to meet ALARA standards for radiation dose reduction. INDICATION: Left-sided abdominal pain and diarrhea. Comparison is made with prior CT from 01/09/2022. A tiny nodule in the right middle lobe is stable. There is some scarring in the medial right lower lobe. No acute infiltrates in the lung bases are seen. No discrete liver mass is identified. The gallbladder is surgically absent. No biliary ductal dilatation is seen. The pancreas and spleen are unremarkable. No adrenal mass is identified. There are cysts within both kidneys, largest on the right measuring 3.7 cm in diameter. No calculi or hydronephrosis is seen. Aorta and iliac vessels are calcified but nonaneurysmal. There are shotty lymph nodes in the left para-aortic location which appears stable when compared with prior study. Short axis measurements approximately 0.8 cm. The left obturator node measures 0.8 cm short axis as well. There is a prominent right obturator node with short axis measuring approximate 0.9 cm. The bowel loops are normal caliber. No obstruction is seen. No free fluid or fluid collection. Bladder is unremarkable. Uterus appears to be surgically absent. No inguinal lymphadenopathy is seen. Bony structures are nonacute. IMPRESSION: 1. Bilateral renal cysts, largest on the right. 2. Stable mildly prominent lymph nodes in the central retroperitoneum as well as within the pelvis. Continued followup could be performed to confirm stability. No other significant abnormality is seen. Dictated by: Dictated on workstation # [id number]
== END ==
LOC: RAD 10:15
PROVIDERS: ATTEND Urology
DX: N28.1 Cyst of kidney, acquired (principal); R59.1 Generalized enlarged lymph nodes
CPT/HCPCS: 36415; 74178; 80048

== ENCOUNTER → 2022-02-11 | Outpatient (CLI) | payer MEDICARE, OTHER ==
[~2022-02-11] MED LIST changes: -CATHETER FLUSH 10 ML SYR IV PRN; -IOHEXOL 350 MG/ML 100 ML (OMNIPAQUE 350) VIAL IV ONE; -NS 100 ML (IVPB) BAG IV ONE
[2022-02-11 09:40] LABS: BASOPHILS # (AUTO) 0.1 10^3/uL (0.0-0.1); BASOPHILS % (AUTO) 1 % (0-10); EOSINOPHILS # (AUTO) 0.1 10^3/uL (0.0-0.3); EOSINOPHILS % (AUTO) 2 % (0-10); HEMATOCRIT 40 % (35-52); HEMOGLOBIN 13.7 g/dL (11.5-16.0); LYMPHOCYTES # (AUTO) 3.2 10^3/uL (1.0-4.0); LYMPHOCYTES % (AUTO) 53 % (12-44); MEAN CORPUSCULAR HEMOGLOBIN 31 pg (25-34); MEAN CORPUSCULAR HGB CONC 34 g/dL (32-36); MEAN CORPUSCULAR VOLUME 92 fL (80-99); MEAN PLATELET VOLUME 10.2 fL (9.0-12.2); MONOCYTES # (AUTO) 0.5 10^3/uL (0.0-1.0); MONOCYTES % (AUTO) 8 % (0-12); NEUTROPHILS # (AUTO) 2.1 10^3/uL (1.8-7.8); NEUTROPHILS % (AUTO) 36 % (42-75); PLATELET COUNT 250 10^3/uL (130-400); WHITE BLOOD COUNT 5.9 10^3/uL (4.3-11.0)
[2022-02-11 10:18] LABS: FREE T4 (FREE THYROXINE) 0.98 NG/DL (0.70-1.48)
== END ==
LOC: LAB 09:19
PROVIDERS: ATTEND Family Medicine
DX: E03.9 Hypothyroidism, unspecified (principal)
CPT/HCPCS: 36415; 84439; 84443; 85025

== ENCOUNTER → 2022-05-07 | Outpatient (CLI) | payer MEDICARE, OTHER ==
--- NOTE | 2022-05-07 12:50 | Diagnostic Imaging Report ---
INDICATION: Routine screening. COMPARISON: 04/20/2021 and 03/07/2020. TECHNIQUE: Unilateral right 2D and 3D screening mammography was performed with CAD. FINDINGS: Scattered fibroglandular densities in the right breast are noted. The parenchymal pattern is stable. No dominant mass or malignant-appearing microcalcifications are seen. The right axilla is unremarkable. IMPRESSION: No mammographic features suspicious for malignancy are identified. ACR BI-RADS Category 1: Negative. Result letter will be mailed to the patient. Note: At least 10% of breast cancer is not imaged by mammography. Dictated by: Dictated on workstation # [id number]
== END ==
LOC: RAD 11:30
PROVIDERS: ATTEND Nurse Practitioner Family
DX: Z12.31 Encounter for screening mammogram for malignant neoplasm of breast (principal)
CPT/HCPCS: 77063

== ENCOUNTER → 2022-05-31 | Outpatient (CLI) | payer MEDICARE, OTHER ==
--- NOTE | 2022-05-31 14:33 | Diagnostic Imaging Report ---
EXAMINATION: CT abdomen and pelvis without contrast from 05/31/2022. TECHNIQUE: Multiple contiguous axial images were obtained through the abdomen and pelvis without the use of intravenous contrast. Auto Exposure Controls were utilized during the CT exam to meet ALARA standards for radiation dose reduction. INDICATION: Evaluate for renal cysts bilaterally. History of kidney stones. Prior hysterectomy and cholecystectomy. COMPARISON: 02/11/2022. FINDINGS: Within the visualized lung bases, there is a 4.5 mm nodule in the right middle lobe. There is a 4.5 mm nodule in the posterolateral border of the right lower lobe. This could be followed using Fleischner criteria. Scarring or atelectasis noted at both lung bases. There is atherosclerotic disease. The nonopacified liver, spleen, pancreas, and adrenal glands are unremarkable. There is evidence of previous cholecystectomy. Within the right kidney, there is a bilobed cystic lesion within the mid medial kidney measuring 3.7 x 5 cm in size. This is fairly stable in appearance when compared to the previous CT with Hounsfield units consistent with a cyst. Left kidney is unremarkable. There is no nephrolithiasis. No hydronephrosis on either side. Again seen are prominent lymph nodes within the retroperitoneum and the iliac chains bilaterally. These are generally stable. No new lymphadenopathy appreciated. There is no ascites. No free air. There is no inflammatory change about the loops of bowel. Appendix is normal. There is no acute osseous abnormality. Diffuse degenerative changes noted. IMPRESSION: 1. Bilobed, otherwise simple cyst in the right kidney; stable in size from previous imaging. 2. No nephrolithiasis or hydronephrosis on either side. 3. Stable-appearing adenopathy within the retroperitoneum and iliac chains of uncertain etiology. This could be followed to assure stability. Dictated by: Dictated on workstation # [id number]
== END ==
LOC: RAD 12:01
PROVIDERS: ATTEND Urology
DX: N28.1 Cyst of kidney, acquired (principal); Z87.442 Personal history of urinary calculi; Z90.710 Acquired absence of both cervix and uterus; Z90.49 Acquired absence of other specified parts of digestive tract
CPT/HCPCS: 74176

== ENCOUNTER → 2022-06-25 | Outpatient (CLI) | payer MEDICARE, OTHER ==
[~2022-06-25] MED LIST changes: +CATHETER FLUSH 10 ML SYR IV PRN; +HOLD METFORMIN - RECEIVED CONTRAST 20 ML VIAL IV SCH; +IOHEXOL 350 MG/ML 100 ML (OMNIPAQUE 350) VIAL IV ONE; +NS 100 ML (IVPB) BAG IV ONE
[2022-06-25 09:57] LABS: CREATININE SERUM 0.84 MG/DL (0.60-1.30)
--- NOTE | 2022-06-25 16:00 | Diagnostic Imaging Report ---
PROCEDURE: CT chest with contrast only. TECHNIQUE: Multiple contiguous axial images were obtained through the chest after administration of intravenous contrast. Auto Exposure Controls were utilized during the CT exam to meet ALARA standards for radiation dose reduction. INDICATION: History of left breast cancer and mastectomy, subcentimeter basilar nodular densities were alerted to at recent abdominal CT. FINDINGS: Tiny subcentimeter 3.8 mm nodule in the subpleural right middle lobe is unchanged. Tiny 3.4 mm sub-solid nodules in the right lower lobe are unchanged. No new suspicious or concerning lung mass. There is no thoracic lymphadenopathy. The atherosclerotic aorta is nonaneurysmal. There are coronary artery vascular calcifications. There is some very slight subpleural scarring in the right lower lobe medially, chronic. No endobronchial mass. No acute chest wall pathology. IMPRESSION: 1. Sub-solid nodules, less than 4 mm, right middle and right lower lobes noted as incidental benign findings requiring no further workup. 2. No lymphadenopathy, pneumonia, chest effusion, or acute pathology. There is atherosclerotic coronary artery disease. Dictated by: Dictated on workstation # [id number]
== END ==
LOC: RAD 09:05
PROVIDERS: ATTEND Nurse Practitioner Family
DX: R91.8 Other nonspecific abnormal finding of lung field (principal); I25.10 Atherosclerotic heart disease of native coronary artery without angina pectoris; Z85.3 Personal history of malignant neoplasm of breast; Z90.12 Acquired absence of left breast and nipple
CPT/HCPCS: 36415; 71260; 82565; 84520

== ENCOUNTER → 2022-09-06 | Outpatient (CLI) | payer MEDICARE, OTHER ==
[~2022-09-06] MED LIST changes: -CATHETER FLUSH 10 ML SYR IV PRN; -HOLD METFORMIN - RECEIVED CONTRAST 20 ML VIAL IV SCH; -IOHEXOL 350 MG/ML 100 ML (OMNIPAQUE 350) VIAL IV ONE; -NS 100 ML (IVPB) BAG IV ONE
== END ==
LOC: CARD 09:23
PROVIDERS: ATTEND Nurse Practitioner Family
DX: I49.3 Ventricular premature depolarization (principal); Z79.899 Other long term (current) drug therapy
CPT/HCPCS: 93225; 93226

== ENCOUNTER → 2023-05-28 | Outpatient (CLI) | payer MEDICARE, OTHER ==
--- NOTE | 2023-05-28 11:40 | Diagnostic Imaging Report ---
INDICATION: Routine screening. COMPARISON: 05/07/2022 and 04/20/2021. TECHNIQUE: Unilateral right 2D and 3D screening mammography was performed with CAD. FINDINGS: The right breast is heterogeneously dense, limiting the sensitivity of mammography. The parenchymal pattern is stable. No mass or malignant-appearing microcalcifications are seen. The right axilla is unremarkable. IMPRESSION: No mammographic features suspicious for malignancy are identified. ACR BI-RADS Category 1: Negative. Result letter will be mailed to the patient. Note: At least 10% of breast cancer is not imaged by mammography. Dictated by: Dictated on workstation # [id number]
== END ==
LOC: RAD 10:41
PROVIDERS: ATTEND Nurse Practitioner
DX: Z12.31 Encounter for screening mammogram for malignant neoplasm of breast (principal)
CPT/HCPCS: 77063